=== PATIENT | male | born 1985 | race Caucasian/White ===

== ENCOUNTER 2022-09-14 18:19 | Inpatient (IN) | payer OTHER, SELFPAY ==
--- NOTE | ~2022-09-14 | XR_ITS ---
EXAMINATION: XR ELBOW, RIGHT CLINICAL INFORMATION: Swelling, pain. COMPARISON: None available. TECHNIQUE: AP, lateral, and oblique views of the right elbow. FINDINGS: No evidence of fractures or malalignment. No joint effusion. No unexpected radiopaque foreign bodies. Diffuse nonspecific soft tissue thickening. XR/XR elbow RT min 3V IMPRESSION: 1. No acute fractures or malalignment. 2. Diffuse nonspecific soft tissue thickening.
--- NOTE | ~2022-09-14 | CT_ITS ---
EXAMINATION: CT RIGHT ELBOW WITH CONTRAST CLINICAL INFORMATION: Abscess, swelling, pain COMPARISON: Radiograph 09/14/2022 TECHNIQUE: Multidetector volumetric images were obtained through the right elbow following administration 85 mL of Omnipaque 350 intravenous contrast. Sagittal and coronal reformatted images were obtained on the technologist's workstation. This CT examination was performed using dose optimization techniques as appropriate, variously including the following: *Automated exposure control *Adjustment of mA and/or kV according to patient size (this includes techniques or standardized protocols for targeted exams where dose is matched to indication/reason for exam; i.e. extremities or head) *Use of iterative reconstruction technique DLP: 99 mGy-cm FINDINGS: Articular alignment across the elbow appears anatomic. No acute fracture is seen. In the dorsal soft tissues overlying the olecranon there is hyperdense material suspicious for packing material along with multiple foci of gas. There is significant associated soft tissue swelling in this region. No definite fluid collection/abscess is seen. No significant elbow effusion. Prominent subcutaneous edema is present extending proximal and distal to this region. CT/CT elbow RT w IV con IMPRESSION: Hyperdense material in the dorsal soft tissues overlying the olecranon suspicious for packing material along with multiple foci of gas. Significant associated soft tissue swelling in this region. No definite fluid collection/abscess identified.
--- NOTE | 2022-09-14 18:45 | ED_ITS ---
HPI - Extremity Injury (Upper) General Chief Complaint: Extremity Injury, Upper <CHRISTINE Bull - Last Filed: 09/14/22 18:52> Stated Complaint: Elbow swelling <CHRISTINE Bull - Last Filed: 09/14/22 18:52> Time Seen by Provider: 09/14/22 23:11 <CHRISTINE Bull - Last Filed: 09/14/22 18:52> Source: patient, RN notes reviewed and old records reviewed <Matheus Smith - Last Filed: 09/15/22 00:56> Mode of arrival: ambulatory <Matheus Smith - Last Filed: 09/15/22 00:56> Limitations: no limitations <Matheus Smith - Last Filed: 09/15/22 00:56> History of Present Illness HPI narrative: 37-year-old male who denies any past medical history presents for evaluation of fevers and right elbow pain. Patient reports that he bumped his elbow a few times the last few weeks He remembers 2 weeks ago while in the [place] he bumped his right e lbow against a water slide and noticed that he had a small cut to the area He has noticed increased stiffness and soreness ever since Over the last 4 days or so he has had significant increase in redness, swelling, pain and subjective fevers over the last 2 days He went to urgent care 2 days ago and was prescribed Bactrim for a skin infection He has taken 4 doses and reports no improvement in his symptoms <Matheus Smith - Last Filed: 09/15/22 00:56> Related Data Allergies/Adverse Reactions: Allergies Allergy/AdvReac Type Severity Reaction Status Date / Time No Known Allergies Allergy Verified 09/14/22 18:46 <CHRISTINE Bull - Last Filed: 09/14/22 18:52> Review of Systems Constitutional: Constitutional: Reports body ache(s), Reports chills and Reports fever(s) <Matheus Smith - Last Filed: 09/15/22 00:56> Cardiovascular: Cardiovascular: Denies chest pain and Denies dyspnea <Matheus Smith - Last Filed: 09/15/22 00:56> Respiratory: Respiratory: Denies dyspnea <Matheus Smith - Last Filed: 09/15/22 00:56> Gastrointestinal: Gastrointestinal: Denies abdominal pain, Denies diarrhea, Denies nausea and Denies vomiting <Matheus Smith - Last Filed: 09/15/22 00:56> Musculoskeletal: Musculoskeletal: Reports joint swelling and Reports limited range of motion <Matheus Smith - Last Filed: 09/15/22 00:56> PMFSH Social History Social History: Social History Advance Directives: No Advance Directives Information Provided: No <CHRISTINE Bull - Last Filed: 09/14/22 18:52> Physical Exam Vital Signs: Vital Signs: Last Vital Signs Temp 99.3 F 09/14/22 18:46 Pulse 96 09/14/22 22:55 Resp 16 09/14/22 22:55 BP 127/72 09/14/22 22:55 Pulse Ox 94 09/14/22 22:55 O2 Del Method Room Air 09/14/22 22:55 BMI result Body Mass Index 25.8 <CHRISTINE Bull - Last Filed: 09/14/22 18:52> Vital Signs: Last Vital Signs Temp 99.3 F 09/14/22 18:46 Pulse 96 09/14/22 22:55 Resp 16 09/14/22 22:55 BP 127/72 09/14/22 22:55 Pulse Ox 94 09/14/22 22:55 O2 Del Method Room Air 09/14/22 22:55 BMI result Body Mass Index 25.8 <Matheus Smith - Last Filed: 09/15/22 00:56> Const: General: healthy appearing, comfortable, no acute distress, alert and awake <Matheus Smith - Last Filed: 09/15/22 00:56> Nutritional Appearance: well nourished <Matheus Smith - Last Filed: 09/15/22 00:56> Orientation/consciousness: patient oriented x3 <Matheus Smith - Last Filed: 09/15/22 00:56> HEENT: Head: Yes normocephalic and Yes atraumatic <Matheus Belle F iled: 09/15/22 00:56> Throat: Yes posterior oropharynx normal <Matheus Smith Last Filed: 09/15/22 00:56> Eyes: Eyelids: Yes eyelids normal < Last Filed: 09/15/22 00:56> Conjunctivae: conjunctivae normal < Last Filed: 09/15/22 00:56> Sclerae: sclerae normal < Last Filed: 09/15/22 00:56> Corneas: corneas normal < Last Filed: 09/15/22 00:56> Pupils: Equal, round and reactive pupils present < Last Filed: 09/15/22 00:56> EOM: EOMs intact bilaterally < Last Filed: 09/15/22 00:56> Neck: Neck: Yes full ROM < Filed: 09/15/22 00:56> Resp: Effort & Inspection: normal respiratory effort, able to speak in complete sentences, no audible wheezes and not labored < Last Filed: 09/15/22 00:56> Auscultation: clear to auscultation bilaterally < Last Filed: 09/15/22 00:56> Cardio: Rate: regular rate < Last Filed: 09/15/22 00:56> Rhythm: regular rhythm < Filed: 09/15/22 00:56> GI: Inspection: No distended < Last Filed: 09/15/22 00:56> Palpation (GI): Soft to palpation, not firm, nontender, no guarding and not rigid < Last Filed: 09/15/22 00:56> Auscultation: normoactive bowel sounds < Last Filed: 09/15/22 00:56> Skin: General skin exam: erythema and fluctuance < Last Filed: 09/15/22 00:56> Neuro: General: patient oriented x3 < Last Filed: 09/15/22 00:56> Cranial nerves: Yes CN's II-XII intact bilaterally, Yes Equal, round and reactive pupils present and Yes Bilaterally intact EOM present <Matheus Sarah - Last Filed: 09/15/22 00:56> Cognition (Neuro): normal cognition <Matheus StarrMarinette - Last Filed: 09/15/22 00:56> Extrem: Other: Patient has significant edema with erythema to the right elbow extending distally towards the hand. He has a large area of fluctuance in the soft tissue of the right elbow. Patient has reduced range of motion with extension and can extend the elbow to approximately 110?. He has full range of motion of the right wrist and all fingers of the right hand. <Matheus Delfinay - Last Filed: 09/15/22 00:56> Right upper extremity: abnormal to inspection and ROM limited <Matheus Smith - Last Filed: 09/15/22 00:56> Course Course Course Narrative: RME - 37 y/o male presents to the ER for evaluation of right elbow swelli ng, pain and redness, worsening for the last 2 weeks after bumping it on a water slide in the [place]. He also banged it again when he was wrestling with his son. He went to Urgent Care on Tuesday and was started on Bactrim and told to use an RADHA wrap. He reports worsening redness, pain and swelling to the elbow and lower arm since. Reports night sweats at home. In triage patient's right elbow is significant swollen, erythematous, warm and tender with limited ROM. VS are stable. Plan: XR elbow, lab workup. <CHRISTINE Bull - Last Filed: 09/14/22 18:52> Medications Administered Discontinued Medications Generic Name Dose Route Start Last Admin Trade Name Freq PRN Reason Stop Dose Admin Ibuprofen 600 mg 09/14/22 20:52 09/14/22 20:58 Ibuprofen 600 Mg Tablet PO 09/14/22 20:53 600 mg ONCE ONE Administration Lidocaine/Epinephrine 10 ml 09/14/22 23:27 09/14/22 23:57 Lidocaine Hcl 2% Pf/Epi 1:200 10 Ml Vial INFILTRATI 09/14/22 23:28 10 ml ONCE ONE Administration <CHRISTINE Bull - Last Filed: 09/14/22 18:52> Medications Administered Discontinued Medications Generic Name Dose Route Start Last Admin Trade Name Neha PRN Reason Stop Dose Admin Ibuprofen 600 mg 09/14/22 20:52 09/14/22 20:58 Ibuprofen 600 Mg Tablet PO 09/14/22 20:53 600 mg ONCE ONE Administration Lidocaine/Epinephrine 10 ml 09/14/22 23:27 09/14/22 23:57 Lidocaine Hcl 2% Pf/Epi 1:200 10 Ml Vial INFILTRATI 09/14/22 23:28 10 ml ONCE ONE Administration <Matheus Smith - Last Filed: 09/15/22 00:56> Medical Decision Making Medical Decision Making [facility] Narrative: Patient has a large abscess that was drained, see procedure note. He has a white count [id number] with elevated inflammatory markers. He has failed outpatient oral antibiotics. He will require admission for IV antibiotics. I ordered vancomycin and ceftriaxone. Prior to antibiotic administration the patient did have a wound culture sent down to the lab. His vital signs are within normal limits, no evidence of sepsis <Matheus Smith - Last Filed: 09/15/22 00:56> Differential Diagnosis Differential Diagnoses: The differential diagnosis associated with the presentation includes <Matheus Smith - Last Filed: 09/15/22 00:56> Cellulitis Abscess Septic joint Sepsis <Matheus Smith - Last Filed: 09/15/22 00:56> Consult Healthcare Provider Management of the patient was discussed with: Building [employer] Teacher (Orthopedist, Barbara Blackwell. Recommends admission for IV antibiotics and likely or management. The patient should be NPO until seen by the orthopedic team later today) <Matheus Smith - Last Filed: 09/15/22 00:56> Lab Data [facility] Lab Attestation statement: I reviewed the patient's lab results. <Matheus Smith - Last Filed: 09/15/22 00:56> Result Diagrams: 09/14/22 19:05 09/14/22 19:05 <CHRISTINE Bull - Last Filed: 09/14/22 18:52> Labs: Lab Results 09/14/22 09/14/22 09/14/22 Range/Units 19:05 19:05 19:05 WBC 17.4 H (4.8-10.8) X10*3/uL RBC 5.10 (4.60-5.80) X10*6/uL Hgb 15.2 (14.0-18.0) g/dl Hct 42.9 (42.0-52.0) % MCV 84.1 (80.0-98.0) fL MCH 29.8 (27.0-33.0) pg MCHC 35.4 (31.0-36.0) g/dl RDW 11.4 (11.0-16.0) % Plt Count 285 (160-400) X10*3/uL MPV 8.3 L (9.4-12.4) fL Immature Gran % (Auto) 0.3 (0.0-0.4) % Neut % (Auto) 74.8 H (45-73) % Lymph % (Auto) 14.2 L (20-40) % Amelia % (Auto) 10.0 (2-11) % Eos % (Auto) 0.5 (0-4) % Baso % (Auto) 0.2 (0-2) % Lymph # (Auto) 2.5 (1.2-4.9) X10*3/uL [place] # (Auto) 1.8 H (0.1-1.2) X10*3/uL Eos # (Auto) 0.1 (0.0-0.4) X10*3/uL Baso # (Auto) 0.0 (0.0-0.2) X10*3/uL Abs Immat Gran (auto) 0.06 H (0.00-0.03) X10*3/uL Absolute Neuts (auto) 13.0 H (2.0-8.3) x10*3/uL Absolute Nucleated RBC 0.000 (0.0-0.012) X10*3/uL Nucleated RBC % (auto) 0.0 (0.0-0.2) /100WBC Smear Tech's Comments VERIFIED ESR 57 H (0-15) MM/HR Sodium 135 (135-145) mmol/L Potassium 3.8 (3.3-5.1) mmol/L Chloride 103 (96-108) mmol/L Carbon Dioxide 21 L (22-29) mmol/L Anion Gap 15 (12-20) BUN 14 (9-16) mg/dL Creatinine 0.92 (0.5-1.4) mg/dL Estim Creat Clear Calc 109.9 Estimated GFR > 60 Random Glucose 168 H (60-115) mg/dL Lactic Acid (0.5-2.0) mmol/L Calcium 9.3 (8.4-10.2) mg/dL Magnesium 2.1 (1.6-2.6) mg/dL Total Bilirubin 1.1 H (0.0-1.0) mg/dL Direct Bilirubin 0.4 (0.0-0.5) mg/dL AST 26 (5-37) U/L ALT 35 (0-40) U/L Alkaline Phosphatase 100 (39-117) U/L C-Reactive Protein 16.49 H (< or = 0.50) mg/dL Total Protein 7.8 (6.5-8.0) g/dL Albumin 4.4 (3.5-5.0) g/dL 09/14/22 Range/Units 19:05 WBC (4.8-10.8) X10*3/uL RBC (4.60-5.80) X10*6/uL Hgb (14.0-18.0) g/dl Hct (42.0-52.0) % MCV (80.0-98.0) fL MCH (27.0-33.0) pg MCHC (31.0-36.0) g/dl RDW (11.0-16.0) % Plt Count (160-400) X10*3/uL MPV (9.4-12.4) fL Immature Gran % (Auto) (0.0-0.4) % Neut % (Auto) (45-73) % Lymph % (Auto) (20-40) % [place] % (Auto) (2-11) % Eos % (Auto) (0-4) % Baso % (Auto) (0-2) % Lymph # (Auto) (1.2-4.9) X10*3/uL [place] # (Auto) (0.1-1.2) X10*3/uL Eos # (Auto) (0.0-0.4) X10*3/uL Baso # (Auto) (0.0-0.2) X10*3/uL Abs Immat Gran (auto) (0.00-0.03) X10*3/uL Absolute Neuts (auto) (2.0-8.3) x10*3/uL Absolute Nucleated RBC (0.0-0.012) X10*3/uL Nucleated RBC % (auto) (0.0-0.2) /100WBC Smear Tech's Comments ESR (0-15) MM/HR Sodium (135-145) mmol/L Potassium (3.3-5.1) mmol/L Chloride (96-108) mmol/L Carbon Dioxide (22-29) mmol/L Anion Gap (12-20) BUN (9-16) mg/dL Creatinine (0.5-1.4) mg/dL Estim Creat Clear Calc Estimated GFR Random Glucose (60-115) mg/dL Lactic Acid 0.9 (0.5-2.0) mmol/L Calcium (8.4-10.2) mg/dL Magnesium (1.6-2.6) mg/dL Total Bilirubin (0.0-1.0) mg/dL Direct Bilirubin (0.0-0.5) mg/dL AST (5-37) U/L ALT (0-40) U/L Alkaline Phosphatase (39-117) U/L C-Reactive Protein (< or = 0.50) mg/dL Total Protein (6.5-8.0) g/dL Albumin (3.5-5.0) g/dL <CHRISTINE Bull - Last Filed: 09/14/22 18:52> Lab Results 09/14/22 09/14/22 09/14/22 Range/Units 19:05 19:05 19:05 WBC 17.4 H (4.8-10.8) X10*3/uL RBC 5.10 (4.60-5.80) X10*6/uL Hgb 15.2 (14.0-18.0) g/dl Hct 42.9 (42.0-52.0) % MCV 84.1 (80.0-98.0) fL MCH 29.8 (27.0-33.0) pg MCHC 35.4 (31.0-36.0) g/dl RDW 11.4 (11.0-16.0) % Plt Count 285 (160-400) X10*3/uL MPV 8.3 L (9.4-12.4) fL Immature Gran % (Auto) 0.3 (0.0-0.4) % Neut % (Auto) 74.8 H (45-73) % Lymph % (Auto) 14.2 L (20-40) % Amelia % (Auto) 10.0 (2-11) % Eos % (Auto) 0.5 (0-4) % Baso % (Auto) 0.2 (0-2) % Lymph # (Auto) 2.5 (1.2-4.9) X10*3/uL [place] # (Auto) 1.8 H (0.1-1.2) X10*3/uL Eos # (Auto) 0.1 (0.0-0.4) X10*3/uL Baso # (Auto) 0.0 (0.0-0.2) X10*3/uL Abs Immat Gran (auto) 0.06 H (0.00-0.03) X10*3/uL Absolute Neuts (auto) 13.0 H (2.0-8.3) x10*3/uL Absolute Nucleated RBC 0.000 (0.0-0.012) X10*3/uL Nucleated RBC % (auto) 0.0 (0.0-0.2) /100WBC Smear Tech's Comments VERIFIED ESR 57 H (0-15) MM/HR Sodium 135 (135-145) mmol/L Potassium 3.8 (3.3-5.1) mmol/L Chloride 103 (96-108) mmol/L Carbon Dioxide 21 L (22-29) mmol/L Anion Gap 15 (12-20) BUN 14 (9-16) mg/dL Creatinine 0.92 (0.5-1.4) mg/dL Estim Creat Clear Calc 109.9 Estimated GFR > 60 Random Glucose 168 H (60-115) mg/dL Lactic Acid (0.5-2.0) mmol/L Calcium 9.3 (8.4-10.2) mg/dL Magnesium 2.1 (1.6-2.6) mg/dL Total Bilirubin 1.1 H (0.0-1.0) mg/dL Direct Bilirubin 0.4 (0.0-0.5) mg/dL AST 26 (5-37) U/L ALT 35 (0-40) U/L Alkaline Phosphatase 100 (39-117) U/L C-Reactive Protein 16.49 H (< or = 0.50) mg/dL Total Protein 7.8 (6.5-8.0) g/dL Albumin 4.4 (3.5-5.0) g/dL 09/14/22 Range/Units 19:05 WBC (4.8-10.8) X10*3/uL RBC (4.60-5.80) X10*6/uL Hgb (14.0-18.0) g/dl Hct (42.0-52.0) % MCV (80.0-98.0) fL MCH (27.0-33.0) pg MCHC (31.0-36.0) g/dl RDW (11.0-16.0) % Plt Count (160-400) X10*3/uL MPV (9.4-12.4) fL Immature Gran % (Auto) (0.0-0.4) % Neut % (Auto) (45-73) % Lymph % (Auto) (20-40) % [place] % (Auto) (2-11) % Eos % (Auto) (0-4) % Baso % (Auto) (0-2) % Lymph # (Auto) (1.2-4.9) X10*3/uL [place] # (Auto) (0.1-1.2) X10*3/uL Eos # (Auto) (0.0-0.4) X10*3/uL Baso # (Auto) (0.0-0.2) X10*3/uL Abs Immat Gran (auto) (0.00-0.03) X10*3/uL Absolute Neuts (auto) (2.0-8.3) x10*3/uL Absolute Nucleated RBC (0.0-0.012) X10*3/uL Nucleated RBC % (auto) (0.0-0.2) /100WBC Smear Tech's Comments ESR (0-15) MM/HR Sodium (135-145) mmol/L Potassium (3.3-5.1) mmol/L Chloride (96-108) mmol/L Carbon Dioxide (22-29) mmol/L Anion Gap (12-20) BUN (9-16) mg/dL Creatinine (0.5-1.4) mg/dL Estim Creat Clear Calc Estimated GFR Random Glucose (60-115) mg/dL Lactic Acid 0.9 (0.5-2.0) mmol/L Calcium (8.4-10.2) mg/dL Magnesium (1.6-2.6) mg/dL Total Bilirubin (0.0-1.0) mg/dL Direct Bilirubin (0.0-0.5) mg/dL AST (5-37) U/L ALT (0-40) U/L Alkaline Phosphatase (39-117) U/L C-Reactive Protein (< or = 0.50) mg/dL Total Protein (6.5-8.0) g/dL Albumin (3.5-5.0) g/dL <Matheus KeysMarinette - Last Filed: 09/15/22 00:56> Procedures Abscess I/D Site: upper extremity (Right elbow soft tissue) <Matheus O Last Filed: 09/15/22 00:56> Side (if applicable): right <Matheus Massimo Last Filed: 09/15/22 00:56> Sedation/analgesia: none <Matheus OJose D - Last Filed: 09/15/22 00:56> Local Anesthetic: lidocaine 2% and with epi <Matheus O Last Filed: 09/15/22 00:56> Amount of anesthesia used (mL): 3 <Matheus O Last Filed: 09/15/22 00:56> Technique: incised with blade <Matheus O Last Filed: 09/15/22 00:56> Amount of fluid expressed (mL): 10 <Matheus OMarinette - Last Filed: 09/15/22 00:56> Sent for culture/gram staining?: Yes <Matheus Smith Last Filed: 09/15/22 00:56> Irrigation: Yes <Matheus Smith Last Filed: 09/15/22 00:56> Packing used?: iodoform <Matheus Smith - Last Filed: 09/15/22 00:56> Discharge Plan Discharge Clinical Impression: Cellulitis and abscess of upper extremity <CHRISTINE Bull - Last Filed: 09/14/22 18:52> Patient Disposition: Admitted As Inpatient <CHRISTINE Bull - Last Filed: 09/14/22 18:52>
[2022-09-14 18:46] VITALS: BP 143/87; PULSE 92; RESP 18; TEMP 37.4; O2SAT 96; BMI 25.8
[2022-09-14 19:13] LABS: Basophils Percent Auto 0.2 % (0-2); Eosinophils Absolute Auto 0.1 X10*3/uL (0.0-0.4); Eosinophils Percent Auto 0.5 % (0-4); Hematocrit 42.9 % (42.0-52.0); Hemoglobin 15.2 g/dl (14.0-18.0); Imm Gran Abs Auto 0.06 X10*3/uL (0.00-0.03); Imm Gran Pct Auto 0.3 % (0.0-0.4); Lymphocytes Absolute Auto 2.5 X10*3/uL (1.2-4.9); Lymphocytes Percent Auto 14.2 % (20-40); MANUAL DIFF FLAG SCAN; Mean Corpuscular HGB Conc 35.4 g/dl (31.0-36.0); Mean Corpuscular Hemoglobin 29.8 pg (27.0-33.0); Mean Corpuscular Volume 84.1 fL (80.0-98.0); Mean Platelet Volume 8.3 fL (9.4-12.4); Monocytes Absolute Auto 1.8 X10*3/uL (0.1-1.2); Neutrophils Percent Auto 74.8 % (45-73); Platelet Count 285 X10*3/uL (160-400); Red Cell Distribution Width 11.4 % (11.0-16.0); SCAN SMEAR FLAG 1; White Blood Count 17.4 X10*3/uL (4.8-10.8)
[2022-09-14 19:21] LABS: Lactic Acid 0.9 mmol/L (0.5-2.0)
[2022-09-14 19:27] LABS: Alanine Aminotransferase 35 U/L (0-40); Albumin Level 4.4 g/dL (3.5-5.0); Alkaline Phosphatase 100 U/L (39-117); Anion Gap 15 (12-20); Aspartate Amino Transferase 26 U/L (5-37); Bilirubin Direct 0.4 mg/dL (0.0-0.5); Bilirubin Total 1.1 mg/dL (0.0-1.0); Blood Urea Nitrogen 14 mg/dL (9-16); C Reactive Protein 16.49 mg/dL (< or = 0.50); Calcium 9.3 mg/dL (8.4-10.2); Carbon Dioxide 21 mmol/L (22-29); Chloride 103 mmol/L (96-108); Creatinine Clr Calc Pharmacy 109.9; Estimated Glomerular Filt Rate > 60; Glucose Random 168 mg/dL (60-115); Magnesium 2.1 mg/dL (1.6-2.6); Potassium 3.8 mmol/L (3.3-5.1); Sodium 135 mmol/L (135-145); Total Protein 7.8 g/dL (6.5-8.0)
[2022-09-14 20:18] LABS: Erythrocyte Sedimentation Rate 57 MM/HR (0-15)
[2022-09-14] MEDS: Ibuprofen 600 MG TABLET PO (20:58)
[2022-09-14 20:59] LABS: SLIDE REVIEW VERIFIED
--- NOTE | 2022-09-14 22:49 | PC.NURSE ---
pt resting quietly awaiting ED provider, labs completed, XR taken, right elbow/forearm swelling and warmth appreciated, CMS in tact, call within reach WCTM
[2022-09-14 22:55] VITALS: BP 127/72; PULSE 96; RESP 16; O2SAT 94
[2022-09-15] VITALS (8 sets, daily range): BP systolic 129–168; BP diastolic 67–88; PULSE 88–100; RESP 18–20; TEMP 36.3–39.1; O2SAT 94–100
[2022-09-15] MEDS: cefTRIAXone sodium 1 GM in 0.9 % Sodium Chloride 50 ML IV ×2 (01:49→23:28)
[2022-09-15] MEDS: 0.9 % Sodium Chloride 1,000 ML 999 ML IV (01:51)
[2022-09-15 01:52] LABS: Prothrombin Time 11.9 SEC (10.0-13.1)
[2022-09-15 01:55] LABS: Partial Thromboplastin Time 27.5 SEC (26.0-36.4)
[2022-09-15 02:01] LABS: COVID-19 Test Negative (Negative); IDNOW Serial# 08D9AD1C
[2022-09-15] MEDS: vancomycin/NS 2,000 MG/500 ML PLAST..BAG 250 MG IV (03:11)
[2022-09-15] MEDS: Acetaminophen 325 MG TABLET 650 MG PO ×3 (03:16→16:38)
--- NOTE | 2022-09-15 05:09 | PM.IMHP ---
History of Present Illness Date of Service: 09/15/22 Chief Complaint: right elbow swelling 37-year-old male with past medical history of psoriasis who presents to the hospital with complaints of difficulty ambulating his right elbow, swelling, and redness in the same region. Patient reports that about 4 weeks ago he fell on his elbow while playing with her son, he then injured the same elbow banging it in various places x2 last episode 2 weeks ago, he started having trouble with movement of his elbow, and few days ago started developing swelling, redness, and worsening pain characterized as intermittent, 3 to 5/10, elbow to the tip of his fingers, relieved with ibuprofen. Movement makes the pain worse. Patient reports chills with no fever. He was seen at urgent care on Tuesday, prescribed Bactrim which has not helped, he was seen by his PCP today who sent him to the ED. Patient otherwise denies any chest pain, shortness of breath, no abdominal pain nausea or vomiting, no diarrhea constipation, no urinary symptoms and no lower extremity edema. No numbness weakness or tingling, no headache or change in vision On arrival to the ED patient hemodynamically stable no significant abnormal vitals Labs are significant for WBC count of 17.4, ESR 57, CRP of 16, Elbow x-ray shows nonspecific soft tissue thickening, with no acute fracture or malalignment an I&D was performed in the ED and fluid was removed from a small abscess and sent for cultures orthopedic team was consulted by ED, patient started on IV antibiotics and will be admitted for further management and evaluation Review of Systems Review of Systems: Yes all other systems are reviewed and are negative [facility] Medical History (Updated 09/15/22 @ 05:13 by Sadnra Levine MD) Psoriasis Surgical History (Updated 09/15/22 @ 05:13 by Sandra Levine MD) No pertinent past surgical history Social History (Updated 09/15/22 @ 05:13 by Sandra Levine MD) Alcohol intake: current Patient Tobacco Use Status: Never used Tobacco Meds Allergies Allergy/AdvReac Type Severity Reaction Status Date / Time No Known Allergies Allergy Verified 09/14/22 18:46 Active Medications: Current Medications Acetaminophen (Acetaminophen 325 Mg Tablet) 650 mg PO Q6H PRN PRN Reason: Pain, Mild (Pain Scale 1-3) Last Admin: 09/15/22 03:16 Dose: 650 mg Docusate Sodium (Docusate Sodium 100 Mg Capsule) 100 mg PO DAILY PRN PRN Reason: Constipation Ceftriaxone Sodium 1 gm/ (Sodium Chloride) 50 mls @ 100 mls/hr IV Q24H OZZY Ondansetron HCl (Ondansetron Hcl 4 Mg/2 Ml Vial) 4 mg IVPUSH Q8H PRN PRN Reason: Nausea and Vomiting Pharmacy Consult (Consult Rx Perform Med Rec) 1 each MISCELLANE ONCE PRN PRN Reason: Consult order Pharmacy Consult (Consult Rx Vancomycin Dosing) 1 each MISCELLANE DAILY PRN PRN Reason: Consult order Sodium Chloride (0.9 % Sodium Chloride Flush 3 Ml Syringe) 3 ml IVFLUSH QSHIFT OZZY Physical Exam Vital Signs and Narrative: Vital Signs: Last Vital Signs Temp 99.3 F 09/14/22 18:46 Pulse 96 09/14/22 22:55 Resp 16 09/14/22 22:55 BP 127/72 09/14/22 22:55 Pulse Ox 94 09/14/22 22:55 O2 Del Method Room Air 09/14/22 22:55 BMI result Body Mass Index 25.8 Const: General: cooperative and no acute distress Orientation/consciousness: patient oriented x3 Eyes: General: appearance normal, both eyes and all related structures Pupils: Equal, round and reactive pupils present Resp: Effort & Inspection: normal respiratory effort Auscultation: clear to auscultation bilaterally Cardio: Rate: regular rate Rhythm: regular rhythm GI: Palpation (GI): Soft to palpation Auscultation: normal bowel sounds Skin: Other: has erythema, warmth, tenderness at right elbow, swelling extending to tip of fingers, Neuro: General: patient oriented x3 Cranial nerves: Yes Equal, round and reactive pupils present Cognition (Neuro): normal cognition Extrem: Other: limited range of motion of his elbow as well as his fingers due to pain, no evidence of compartment rigidity, no paresthesia General: Yes no pedal edema Results Labs 09/14/22 19:05 09/14/22 19:05 Labs: Laboratory Results - last 24 hr 09/14/22 09/14/22 09/14/22 19:05 19:05 19:05 MCV 84.1 MCH 29.8 MCHC 35.4 RDW 11.4 Plt Count 285 MPV 8.3 L Immature Gran % (Auto) 0.3 Neut % (Auto) 74.8 H Lymph % (Auto) 14.2 L [place] % (Auto) 10.0 Eos % (Auto) 0.5 Baso % (Auto) 0.2 Lymph # (Auto) 2.5 [place] # (Auto) 1.8 H Eos # (Auto) 0.1 Baso # (Auto) 0.0 Abs Immat Gran (auto) 0.06 H Absolute Neuts (auto) 13.0 H Absolute Nucleated RBC 0.000 Nucleated RBC % (auto) 0.0 Smear Tech's Comments VERIFIED ESR 57 H PT INR APTT Anion Gap 15 Estim Creat Clear Calc 109.9 Estimated GFR > 60 Random Glucose 168 H Lactic Acid Calcium 9.3 Magnesium 2.1 Total Bilirubin 1.1 H Direct Bilirubin 0.4 AST 26 ALT 35 Alkaline Phosphatase 100 C-Reactive Protein 16.49 H Total Protein 7.8 Albumin 4.4 COVID-19 (REINIER) COVID-Shipping Easy 09/14/22 09/15/22 09/15/22 19:05 01:41 01:41 MCV MCH MCHC RDW Plt Count MPV Immature Gran % (Auto) Neut % (Auto) Lymph % (Auto) [place] % (Auto) Eos % (Auto) Baso % (Auto) Lymph # (Auto) [place] # (Auto) Eos # (Auto) Baso # (Auto) Abs Immat Gran (auto) Absolute Neuts (auto) Absolute Nucleated RBC Nucleated RBC % (auto) Smear Tech's Comments ESR PT 11.9 INR 1.0 APTT 27.5 Anion Gap Estim Creat Clear Calc Estimated GFR Random Glucose Lactic Acid 0.9 Calcium Magnesium Total Bilirubin Direct Bilirubin AST ALT Alkaline Phosphatase C-Reactive Protein Total Protein Albumin COVID-19 (REINIER) Negative COVID-19 Clin Com See Note Imaging Radiologist's Impressions: Impressions Elbow X-Ray 09/14/22 18:45 IMPRESSION: 1. No acute fractures or malalignment. 2. Diffuse nonspecific soft tissue thickening. Assessment and Plan (1) Cellulitis and abscess of upper extremity: Status: Acute Plan 37-year-old male with past medical history of psoriasis presents to the hospital with complaints of elbow pain, swelling found to have cellulitis and small abscess # cellulitis and abscess of right upper extremity - localized around the elbow - small incision was made in the ED, small abscess was drained, cultures pending - will obtain elbow CT - continue IV antibiotics to cover g negatives as well as MRSA given his history of MRSA infection in the past - follow cultures - ortho consulted DVT prophylaxis: Early ambulation Time Spent With Patient Time: Total time managing care of this patient today ____ minutes. Quality Stroke Does the patient have a stroke diagnosis?: No VTE Prior VTE?: No VTE Risk Level:: Medical - low VTE Device Contraindication: Treatment Not Indicated VTE Drug Contraindication: Treatment Not Indicated
[2022-09-15] MEDS: iohexoL 350 MG/ML 100 ML INFUS..BTL 85 ML IV (05:58)
[2022-09-15 06:35] LABS: Basophils Percent Auto 0.2 % (0-2); Eosinophils Percent Auto 0.3 % (0-4); Hematocrit 39.1 % (42.0-52.0); Hemoglobin 13.6 g/dl (14.0-18.0); Imm Gran Abs Auto 0.09 X10*3/uL (0.00-0.03); Imm Gran Pct Auto 0.6 % (0.0-0.4); Lymphocytes Absolute Auto 1.2 X10*3/uL (1.2-4.9); Lymphocytes Percent Auto 8.1 % (20-40); MANUAL DIFF FLAG SCAN; Mean Corpuscular HGB Conc 34.8 g/dl (31.0-36.0); Mean Corpuscular Hemoglobin 29.6 pg (27.0-33.0); Mean Corpuscular Volume 85.2 fL (80.0-98.0); Mean Platelet Volume 8.2 fL (9.4-12.4); Monocytes Absolute Auto 1.7 X10*3/uL (0.1-1.2); Neutrophils Absolute Auto 12.2 x10*3/uL (2.0-8.3); Neutrophils Percent Auto 79.8 % (45-73); Platelet Count 241 X10*3/uL (160-400); Red Blood Count 4.59 X10*6/uL (4.60-5.80); Red Cell Distribution Width 11.5 % (11.0-16.0); SCAN SMEAR FLAG 1; White Blood Count 15.2 X10*3/uL (4.8-10.8)
[2022-09-15 06:52] LABS: Anion Gap 10 (12-20); Blood Urea Nitrogen 10 mg/dL (9-16); Calcium 8.3 mg/dL (8.4-10.2); Carbon Dioxide 22 mmol/L (22-29); Chloride 106 mmol/L (96-108); Creatinine Clr Calc Pharmacy 123.3; Estimated Glomerular Filt Rate > 60; Glucose Random 102 mg/dL (60-115); Potassium 4.3 mmol/L (3.3-5.1); Sodium 134 mmol/L (135-145)
--- NOTE | 2022-09-15 07:07 | PC.NURSE ---
Addendum entered by Rhoda Sky RN 09/15/22 07:09: correction, pt rating pain 7/10 to elbow Original Note: Resumed care of this patient this morning, sitting comfortably in bed this morning, rates his pain currently 1/10, all needs met at this time
--- NOTE | 2022-09-15 07:32 | PM.CNOR ---
History of Present Illness HPI Consult date: 09/15/22 Chief complaint: Cellulitis, Abscess Narrative: Mr. Guillen is a 37-year-old healthy male with no past medical history who presented to the ED yesterday evening for evaluation of fevers and right elbow pain. He reports that 2 weeks ago while on vacaition in the [facility] he bumped his right elbow against a water slide and noticed that he had a small cut to the area. He has noticed increased stiffness and soreness ever since. However, the last 4 days he has had a significant increase in redness, swelling, pain and subjective fevers x 2 days. He presented to urgent care 2 days ago and was prescribed Bactrim for a skin infection. He reports taking four doses of Bactrim with no improvement and continued worsening symptoms. While in the ED the right elbow olecranon bursa was incised and allowed to drain. Cultures obtained and the incision site was packed. He was admitted to the medicine service with orthopedic consult for further evaluation and treatment. Review of Systems Review of Systems: Yes all other systems are reviewed and are negative PMFSH Past Medical History Medical History (Updated 09/15/22 @ 08:13 by Barbara Munoz PA-C) Psoriasis Surgical History Surgical History (Updated 09/15/22 @ 05:13 by Sandra Levine MD) No pertinent past surgical history Social History Social History (Updated 09/15/22 @ 05:13 by Sandra Levine MD) Alcohol intake: current Patient Tobacco Use Status: Never used Tobacco Use of substances other than those prescribed or required for medical reasons: No Advance Directives: No Advance Directives Information Provided: No service: No Current occupational status: unemployed Meds Allergies Allergy/AdvReac Type Severity Reaction Status Date / Time No Known Allergies Allergy Verified 09/14/22 18:46 Active Medications: Current Medications Acetaminophen (Acetaminophen 325 Mg Tablet) 650 mg PO Q6H PRN PRN Reason: Pain, Mild (Pain Scale 1-3) Last Admin: 09/15/22 03:16 Dose: 650 mg Docusate Sodium (Docusate Sodium 100 Mg Capsule) 100 mg PO DAILY PRN PRN Reason: Constipation Ceftriaxone Sodium 1 gm/ (Sodium Chloride) 50 mls @ 100 mls/hr IV Q24H [facility] Ondansetron HCl (Ondansetron Hcl 4 Mg/2 Ml Vial) 4 mg IVPUSH Q8H PRN PRN Reason: Nausea and Vomiting Pharmacy Consult (Consult Rx Perform Med Rec) 1 each MISCELLANE ONCE PRN PRN Reason: Consult order Pharmacy Consult (Consult Rx Vancomycin Dosing) 1 each MISCELLANE DAILY PRN PRN Reason: Consult order Sodium Chloride (0.9 % Sodium Chloride Flush 3 Ml Syringe) 3 ml IVFLUSH QSHIFT [facility] Home Medications Medication Instructions Recorded Confirmed Last Taken Type ibuprofen 800 mg tablet 800 mg PO TID PRN Pain 09/15/22 09/15/22 Unknown History sulfamethoxazole 800 1 tab PO BID 09/15/22 09/15/22 Unknown History mg-trimethoprim 160 mg tablet (Bactrim DS) Physical Exam Vital Signs: Vital Signs: Last Vital Signs Temp 99.3 F 09/14/22 18:46 Pulse 96 09/14/22 22:55 Resp 16 09/14/22 22:55 BP 127/72 09/14/22 22:55 Pulse Ox 94 09/14/22 22:55 O2 Del Method Room Air 09/14/22 22:55 BMI result Body Mass Index 25.8 Const: General: cooperative and no acute distress Orientation/consciousness: patient oriented x3 Resp: Effort & Inspection: normal respiratory effort and able to speak in complete sentences Cardio: Peripheral pulses: Peripheral pulses 2+ throughout Skin: General skin exam: no rashes or lesions noted Neuro: General: patient oriented x3 Extrem: Other: Right elbow signifcant erythema over the olecranon bursa. Incision site is packed with no active drainage. Able to flex and extend but has significant stiffness. Sensation is intact. Able to move hand and wrist. NVI. Results Labs 09/14/22 19:05 09/15/22 06:00 Labs: Abnormal lab results 09/14/22 09/14/22 09/14/22 Range/Units 19:05 19:05 19:05 WBC 17.4 H (4.8-10.8) X10*3/uL MPV 8.3 L (9.4-12.4) fL Neut % (Auto) 74.8 H (45-73) % Lymph % (Auto) 14.2 L (20-40) % [place] # (Auto) 1.8 H (0.1-1.2) X10*3/uL Abs Immat Gran (auto) 0.06 H (0.00-0.03) X10*3/uL Absolute Neuts (auto) 13.0 H (2.0-8.3) x10*3/uL ESR 57 H (0-15) MM/HR Sodium (135-145) mmol/L Carbon Dioxide 21 L (22-29) mmol/L Anion Gap (12-20) Random Glucose 168 H (60-115) mg/dL Calcium (8.4-10.2) mg/dL Total Bilirubin 1.1 H (0.0-1.0) mg/dL C-Reactive Protein 16.49 H (< or = 0.50) mg/dL 09/15/22 Range/Units 06:00 WBC (4.8-10.8) X10*3/uL MPV (9.4-12.4) fL Neut % (Auto) (45-73) % Lymph % (Auto) (20-40) % [place] # (Auto) (0.1-1.2) X10*3/uL Abs Immat Gran (auto) (0.00-0.03) X10*3/uL Absolute Neuts (auto) (2.0-8.3) x10*3/uL ESR (0-15) MM/HR Sodium 134 L (135-145) mmol/L Carbon Dioxide (22-29) mmol/L Anion Gap 10 L (12-20) Random Glucose (60-115) mg/dL Calcium 8.3 L D (8.4-10.2) mg/dL Total Bilirubin (0.0-1.0) mg/dL C-Reactive Protein (< or = 0.50) mg/dL H & H 09/14/22 Range/Units 19:05 Hgb 15.2 (14.0-18.0) g/dl Hct 42.9 (42.0-52.0) % Coagulation 09/15/22 Range/Units 01:41 INR 1.0 (0.9-1.1) All other labs normal. Assessment and Plan (1) Cellulitis and abscess of upper extremity: Status: Acute (2) Septic olecranon bursitis of right elbow: Status: Acute - May remove packing this afternoon -Keep bandages c/d/i. - Anticipate continued drainage -IV abx and adjust based off of cultures -Pain management as needed -Encourage gentle ROM Time Spent With Patient Time: Total time managing care of this patient today ____ minutes. Procedures Date of Service Date of Service: 09/15/22
[2022-09-15 07:52] LABS: SLIDE REVIEW VERIFIED
--- NOTE | 2022-09-15 07:52 | PHA.PROG ---
Admission Date/Time: September 15, 2022 01:02 Indication: CELLULITIS Weight in k.379 kg Adjusted body weight in K.1 [place] body weight in Kg: Obesity Dosing Indication % IBW: Serum Creatinine - Last 168 Hours 09/14/22 09/15/22 19:05 06:00 Creatinine 0.92 0.82 Estimated CrCl and GFR - Last 168 Hours 09/14/22 09/15/22 19:05 06:00 Estim Creat Clear Calc 109.9 123.3 Estimated GFR > 60 > 60 Vancomycin Loading Dose: 2000 MG Current Vancomycin Dosing Regimen: 1250MG Q12H Vancomycin Monitoring using AUC goal of 400 - 600 range with trough as surrogate marker: AUC 495, 14.6 Date and Time for next Vancomycin Level to be drawn: TROUGH 09/16 @ 1300 Pharmacist Comments on Vancomycin Plan: Vancomycin dosing will take advantage of [employer] as a clinical decision support tool that uses Bayesian modeling to calculate individual patient's pharmacokinetic parameters and forecast the patient's drug concentration time course with the target goal AUC 24 range of 400 - 600 mg/L/hr.
--- NOTE | 2022-09-15 09:54 | PM.EVENT ---
Event Note Date of Service: 09/15/22 Event Note: Pt seen and examined, has right elbow abscess from fall with injury 3 weeks agao, high risk for MRSA. Add Vanco to present Ceftriaxne/ O/w A/P per H and P from this morning. Time Spent With Patient Time: Total time managing care of this patient today ____ minutes.
[2022-09-15] MEDS: 0.9 % Sodium Chloride Flush 3 ML SYRINGE IVFLUSH ×3 (10:16→23:27)
--- NOTE | 2022-09-15 10:41 | PHA.MEDREC ---
Pharmacy Consult ? Medication Reconciliation Spoke with patient to confirm medications. Pharmacy has completed the medication reconciliation.
--- NOTE | 2022-09-15 12:06 | PC.NURSE ---
Rectal temp performed d/t patient continuing to feel warm, and starting to get diaphoretic, temp was 102.4f, Provider made aware, also asked about continued vanco dose d/t order not being in place. Right hand still swollen but no increase in redness, pulse remains + and strong. awaiting further orders at this time
--- NOTE | 2022-09-15 13:30 | MHC.CM.PN ---
Met with patient and his , Anastasia, in regards to discharge planning. Patient lives with Anastasia, ambulates independently and had no services prior to coming to the hospital. No services anticipated to be needed because patient is not homebound. PCP verified. Patient denies having a HCP. Information provided. Patient declining to complete one at this time. Patient received 1 J&J vaccine and 1 Moderna booster. Obs notice explained and signed. Anastasia will transport patient home when medically stable. Continue to monitor for d/c needs.
--- NOTE | 2022-09-15 14:59 | PC.NURSE ---
Report given to Tino MIKE, pt tp be transported up to unit.
[2022-09-15] MEDS: vancomycin HCL 1,250 MG in 0.9 % Sodium Chloride 250 ML 166.67 MG IV (16:32)
[2022-09-16] MEDS: Ibuprofen 600 MG TABLET PO ×2 (00:01→09:04)
[2022-09-16 04:00] VITALS: BP 135/70; PULSE 60; RESP 18; TEMP 36.6; O2SAT 96
[2022-09-16] MEDS: vancomycin HCL 1,250 MG in 0.9 % Sodium Chloride 250 ML 166.67 MG IV ×2 (05:13→16:06)
[2022-09-16 06:20] LABS: Creatinine Clr Calc Pharmacy 129.6; Estimated Glomerular Filt Rate > 60
[2022-09-16 07:17] VITALS: BP 129/71; PULSE 86; RESP 16; TEMP 37.3; O2SAT 96
--- NOTE | 2022-09-16 08:21 | PM.PNORT ---
Subjective Subjective Date of Service: 09/16/22 Interval history: Patient resting in bed comfortably no overnight events. Pain is managed. No additional complaints. Physical Exam Vital Signs: Vital Signs: Last Vital Signs Temp 99.2 F 09/16/22 07:17 Pulse 86 09/16/22 07:17 Resp 16 09/16/22 07:17 BP 129/71 09/16/22 07:17 Pulse Ox 96 09/16/22 07:17 O2 Del Method Room Air 09/16/22 07:17 BMI result Body Mass Index 25.8 Const: General: cooperative and no acute distress Orientation/consciousness: patient oriented x3 Resp: Effort & Inspection: normal respiratory effort and able to speak in complete sentences Cardio: Peripheral pulses: Peripheral pulses 2+ throughout Skin: General skin exam: no rashes or lesions noted Neuro: General: patient oriented x3 Extrem: Other: Right elbow signifcant erythema over the olecranon bursa. Incision site is packed with no active drainage. Able to flex and extend but has significant stiffness. Sensation is intact. Able to move hand and wrist. NVI. Procedures Date of Service Date of Service: 09/16/22 Progress Note: A&P Assessment and plan (1) Septic olecranon bursitis of right elbow: Status: Acute Assessment and Plan: Packing removed at bedside. New dressing placed Continue IV abx Encourage gentle ROM Plan for I&D tomorrow afternoon (2) Cellulitis and abscess of upper extremity: Status: Acute Time Spent With Patient Time: Total time managing care of this patient today ____ minutes. Quality Stroke Does the patient have a stroke diagnosis?: No VTE Prior VTE?: No VTE Risk Level:: Medical - low VTE Device Contraindication: Treatment Not Indicated VTE Drug Contraindication: Treatment Not Indicated
[2022-09-16] MEDS: 0.9 % Sodium Chloride Flush 3 ML SYRINGE IVFLUSH ×3 (09:05→20:56)
--- NOTE | 2022-09-16 13:10 | HO.PM.IMPN ---
Subjective Subjective Date of Service: 09/16/22 Interval History: No acute issues overnight. Remains afebrile. Dressing changed by Ortho this a.m. Review of Systems Denies chest pain Denies shortness of breath Denies nausea vomiting diarrhea Denies fever chills Physical Exam Vital Signs: Vital Signs: Last Vital Signs Temp 99.2 F 09/16/22 07:17 Pulse 86 09/16/22 07:17 Resp 16 09/16/22 07:17 BP 129/71 09/16/22 07:17 Pulse Ox 96 09/16/22 07:17 O2 Del Method Room Air 09/16/22 07:17 BMI result Body Mass Index 25.8 Const: Other: No acute distress Resp: Other: Clear to auscultation bilaterally no rales rhonchi wheezes Cardio: Other: No S4; positive S1-S2; no S3 murmurs rubs or gallops GI: Other: Soft nontender nondistended normoactive bowel sounds Extrem: Other: Price wrap to right elbow clean dry and intact Objective Data Active Medications Acetaminophen (Acetaminophen 325 Mg Tablet) 650 mg PO Q6H PRN PRN Reason: Pain, Mild (Pain Scale 1-3) Last Admin: 09/15/22 16:38 Dose: 650 mg Documented By: ALLIE Docusate Sodium (Docusate Sodium 100 Mg Capsule) 100 mg PO DAILY PRN PRN Reason: Constipation Ceftriaxone Sodium 1 gm/ (Sodium Chloride) 50 mls @ 100 mls/hr IV Q24H [facility] Last Infusion: 09/16/22 00:02 Dose: 0 mls/hr Documented By: JUAN Vancomycin HCl 1,250 mg/ (Sodium Chloride) 250 mls @ 166.667 mls/hr IV Q12H [facility] Last Infusion: 09/16/22 06:45 Dose: 0 mls/hr Documented By: JUAN Cefazolin Sodium/Dextrose (Ancef) 2 gm in 50 mls @ 100 mls/hr IV PREOP ONE Stop: 09/17/22 12:29 Ibuprofen (Ibuprofen 600 Mg Tablet) 600 mg PO Q8H PRN PRN Reason: Pain, Severe (Pain Scale 7-10) Last Admin: 09/16/22 09:04 Dose: 600 mg Documented By: ELMER Melatonin (Melatonin 3 Mg Tablet) 6 mg PO BEDTIME PRN PRN Reason: Insomnia Last Admin: 09/16/22 00:00 Dose: 6 mg Documented By: JUAN Ondansetron HCl (Ondansetron Hcl 4 Mg/2 Ml Vial) 4 mg IVPUSH Q8H PRN PRN Reason: Nausea and Vomiting Pharmacy Consult (Consult Rx Perform Med Rec) 1 each MISCELLANE ONCE PRN PRN Reason: Consult order Pharmacy Consult (Consult Rx Vancomycin Dosing) 1 each MISCELLANE DAILY PRN PRN Reason: Consult order Sodium Chloride (0.9 % Sodium Chloride Flush 3 Ml Syringe) 3 ml IVFLUSH QSHIFT [facility] Last Admin: 09/16/22 09:05 Dose: 3 ml Documented By: CHARTN Labs 09/15/22 06:00 09/16/22 05:19 Labs: Laboratory Results - last 24 hr 09/16/22 05:19 Estim Creat Clear Calc 129.6 Estimated GFR > 60 Microbiology Microbiology Results: Microbiology 09/15/22 01:41 Gram Stain - Final Elbow Right Routine Culture - Preliminary No growth to date. 09/14/22 19:05 Blood Culture - Preliminary Blood - Venous Coag negative Staphylococcus 09/14/22 20:01 Blood Culture - Preliminary Blood - Venous No growth after 24 hours. Assessment and Plan (1) Cellulitis and abscess of upper extremity: Status: Acute Plan 37-year-old male with past medical history of psoriasis presents to the hospital with complaints of elbow pain, swelling found to have cellulitis and small abscess ; drain in ER 1.Cellulitis and abscess of right upper extremity -ceftriaxone/vancomycin (2) -cultures pending -ortho following DVT prophylaxis: Early ambulation Requires ongoing hospitalization for IV antibiotics to treat cellulitis/abscess Time Spent With Patient Time: Total time managing care of this patient today ____ minutes. Quality Stroke Does the patient have a stroke diagnosis?: No VTE Prior VTE?: No VTE Risk Level:: Medical - low VTE Device Contraindication: Treatment Not Indicated VTE Drug Contraindication: Treatment Not Indicated
[2022-09-16] MEDS: oxyCODONE HCl Immed Release 5 MG TABLET PO ×2 (14:32→20:54)
[2022-09-16 14:50] LABS: Vancomycin Trough 4.3 mcg/mL (10.0-20.0)
--- NOTE | 2022-09-16 15:05 | HE.PHANOTE ---
RE: vanco Trough on 09/16 came back at 4.3; increased dose to 1250mg Q8H with predicted AUC 467mg/L, trough 11.1mg/L. Next level to be drawn 09/17/22 @1400
[2022-09-16 15:48] VITALS: BP 134/83; PULSE 96; RESP 18; TEMP 37.7; O2SAT 99
[2022-09-16] MEDS: Acetaminophen 325 MG TABLET 650 MG PO (16:11)
[2022-09-16 19:39] VITALS: BP 140/65; PULSE 89; RESP 15; TEMP 36.9; O2SAT 97
[2022-09-16] MEDS: Melatonin 3 MG TABLET 6 MG PO ×2 (20:54)
[2022-09-16] MEDS: cefTRIAXone sodium 1 GM in 0.9 % Sodium Chloride 50 ML IV (23:48)
[2022-09-17] VITALS (14 sets, daily range): BP systolic 113–159; BP diastolic 57–87; PULSE 59–90; RESP 16–25; TEMP 36.6–38.1; O2SAT 92–98
[2022-09-17] MEDS: vancomycin HCL 1,250 MG in 0.9 % Sodium Chloride 250 ML 166.67 MG IV ×2 (00:20→08:07)
[2022-09-17] MEDS: oxyCODONE HCl Immed Release 5 MG TABLET PO ×6 (01:00→20:15)
[2022-09-17] MEDS: Acetaminophen 325 MG TABLET 650 MG PO (01:09)
[2022-09-17 06:42] LABS: Creatinine Clr Calc Pharmacy 138.5; Estimated Glomerular Filt Rate > 60
[2022-09-17] MEDS: 0.9 % Sodium Chloride Flush 3 ML SYRINGE IVFLUSH ×3 (08:02→20:05)
[2022-09-17] MEDS: ondansetron HCL 4 MG/2 ML VIAL IVPUSH (09:18)
--- NOTE | 2022-09-17 11:26 | P.CONAN_ITS ---
[facility] Active Problems Active Problems: All Active Problems (Updated 09/15/22 @ 08:13 by Barbara Munoz PA-C) Septic olecranon bursitis of right elbow (Acute) Cellulitis and abscess of upper extremity (Acute) Past Medical History Medical History (Updated 09/15/22 @ 08:13 by Barbara Munoz PA-C) Psoriasis Family History Family history of problems with anesthesia: No Surgical History Surgical History (Updated 09/15/22 @ 05:13 by Sandra Levine MD) No pertinent past surgical history History of Problems with Anesthesia: No Social History Social History (Updated 09/15/22 @ 05:13 by Sandra Levine MD) Alcohol intake: current Patient Tobacco Use Status: Never used Tobacco Use of substances other than those prescribed or required for medical reasons: No Currently Displaying Signs/Symptoms of Drug Intoxication Withdrawal: No Are you DNR?: No Advance Directives: No Advance Directives Information Provided: No Recently lost weight without trying: No Nutrition Risks: No Nutritional Risk service: No Current occupational status: unemployed Meds Allergies Allergy/AdvReac Type Severity Reaction Status Date / Time No Known Allergies Allergy Verified 09/14/22 18:46 Active Medications: Current Medications Acetaminophen (Acetaminophen 325 Mg Tablet) 650 mg PO Q6H PRN PRN Reason: Pain, Mild (Pain Scale 1-3) Last Admin: 09/17/22 01:09 Dose: 650 mg Docusate Sodium (Docusate Sodium 100 Mg Capsule) 100 mg PO DAILY PRN PRN Reason: Constipation Ceftriaxone Sodium 1 gm/ (Sodium Chloride) 50 mls @ 100 mls/hr IV Q24H [facility] Last Infusion: 09/17/22 00:19 Dose: Infused Cefazolin Sodium/Dextrose (Ancef) 2 gm in 50 mls @ 100 mls/hr IV PREOP ONE Stop: 09/17/22 12:29 Vancomycin HCl 1,250 mg/ (Sodium Chloride) 250 mls @ 166.667 mls/hr IV Q8H [facility] Last Infusion: 09/17/22 09:41 Dose: Infused Ibuprofen (Ibuprofen 600 Mg Tablet) 600 mg PO Q8H PRN PRN Reason: Pain, Severe (Pain Scale 7-10) Last Admin: 09/16/22 09:04 Dose: 600 mg Melatonin (Melatonin 3 Mg Tablet) 6 mg PO BEDTIME PRN PRN Reason: Insomnia Last Admin: 09/16/22 20:54 Dose: 6 mg Ondansetron HCl (Ondansetron Hcl 4 Mg/2 Ml Vial) 4 mg IVPUSH Q8H PRN PRN Reason: Nausea and Vomiting Last Admin: 09/17/22 09:18 Dose: 4 mg Oxycodone HCl (Oxycodone Hcl Immed Release 5 Mg Tablet) 5 mg PO Q4H PRN PRN Reason: Pain, Moderate(Pain Scale 4-6) Last Admin: 09/17/22 06:22 Dose: 5 mg Pharmacy Consult (Consult Rx Perform Med Rec) 1 each MISCELLANE ONCE PRN PRN Reason: Consult order Pharmacy Consult (Consult Rx Vancomycin Dosing) 1 each MISCELLANE DAILY PRN PRN Reason: Consult order Sodium Chloride (0.9 % Sodium Chloride Flush 3 Ml Syringe) 3 ml IVFLUSH QSHIFT [facility] Last Admin: 09/17/22 08:02 Dose: 3 ml Home Medications Medication Instructions Recorded Confirmed Last Taken Type ibuprofen 800 mg tablet 800 mg PO TID PRN Pain 09/15/22 09/15/22 Unknown History sulfamethoxazole 800 1 tab PO BID 09/15/22 09/15/22 Unknown History mg-trimethoprim 160 mg tablet (Bactrim DS) Exam Exam Date and Time: September 17, 2022 112 Height,Weight and Vital Signs: Height 5 ft 9 in Weight 79.379 kg Last Vital Signs Temp 97.9 F 09/17/22 08:00 Pulse 88 09/17/22 08:00 Resp 18 09/17/22 08:00 BP 128/72 09/17/22 08:00 Pulse Ox 96 09/17/22 08:00 O2 Del Method Room Air 09/17/22 08:00 Pertinent Lab Results Pertinent Lab Results: Laboratory Tests 09/14/22 09/14/22 09/14/22 19:05 19:05 19:05 WBC 17.4 H RBC 5.10 Hgb 15.2 Hct 42.9 MCV 84.1 MCH 29.8 MCHC 35.4 RDW 11.4 Plt Count 285 MPV 8.3 L Immature Gran % (Auto) 0.3 Neut % (Auto) 74.8 H Lymph % (Auto) 14.2 L [place] % (Auto) 10.0 Eos % (Auto) 0.5 Baso % (Auto) 0.2 Lymph # (Auto) 2.5 [place] # (Auto) 1.8 H Eos # (Auto) 0.1 Baso # (Auto) 0.0 Abs Immat Gran (auto) 0.06 H Absolute Neuts (auto) 13.0 H Absolute Nucleated RBC 0.000 Nucleated RBC % (auto) 0.0 Smear Tech's Comments VERIFIED ESR 57 H PT INR APTT Sodium 135 Potassium 3.8 Chloride 103 Carbon Dioxide 21 L Anion Gap 15 BUN 14 Creatinine 0.92 Estim Creat Clear Calc 109.9 Estimated GFR > 60 Random Glucose 168 H Lactic Acid Calcium 9.3 Magnesium 2.1 Total Bilirubin 1.1 H Direct Bilirubin 0.4 AST 26 ALT 35 Alkaline Phosphatase 100 C-Reactive Protein 16.49 H Total Protein 7.8 Albumin 4.4 Vancomycin Trough COVID-19 ([facility]) COVID-19 [employer] 09/14/22 09/15/22 09/15/22 19:05 01:41 01:41 WBC RBC Hgb Hct MCV MCH MCHC RDW Plt Count MPV Immature Gran % (Auto) Neut % (Auto) Lymph % (Auto) [place] % (Auto) Eos % (Auto) Baso % (Auto) Lymph # (Auto) [place] # (Auto) Eos # (Auto) Baso # (Auto) Abs Immat Gran (auto) Absolute Neuts (auto) Absolute Nucleated RBC Nucleated RBC % (auto) Smear Tech's Comments ESR PT 11.9 INR 1.0 APTT 27.5 Sodium Potassium Chloride Carbon Dioxide Anion Gap BUN Creatinine Estim Creat Clear Calc Estimated GFR Random Glucose Lactic Acid 0.9 Calcium Magnesium Total Bilirubin Direct Bilirubin AST ALT Alkaline Phosphatase C-Reactive Protein Total Protein Albumin Vancomycin Trough COVID-19 ([facility]) Negative COVID-19 [employer] See Note 09/15/22 09/15/22 09/16/22 06:00 06:00 05:19 WBC 15.2 H RBC 4.59 L Hgb 13.6 L Hct 39.1 L MCV 85.2 MCH 29.6 MCHC 34.8 RDW 11.5 Plt Count 241 MPV 8.2 L Immature Gran % (Auto) 0.6 H Neut % (Auto) 79.8 H Lymph % (Auto) 8.1 L [place] % (Auto) 11.0 Eos % (Auto) 0.3 Baso % (Auto) 0.2 Lymph # (Auto) 1.2 [place] # (Auto) 1.7 H Eos # (Auto) 0.0 Baso # (Auto) 0.0 Abs Immat Gran (auto) 0.09 H Absolute Neuts (auto) 12.2 H Absolute Nucleated RBC 0.000 Nucleated RBC % (auto) 0.0 Smear Tech's Comments VERIFIED ESR PT INR APTT Sodium 134 L Potassium 4.3 Chloride 106 Carbon Dioxide 22 Anion Gap 10 L BUN 10 Creatinine 0.82 0.78 Estim Creat Clear Calc 123.3 129.6 Estimated GFR > 60 > 60 Random Glucose 102 Lactic Acid Calcium 8.3 L D Magnesium Total Bilirubin Direct Bilirubin AST ALT Alkaline Phosphatase C-Reactive Protein Total Protein Albumin Vancomycin Trough COVID-19 ([facility]) COVID-[employer] 09/16/22 09/17/22 13:57 05:31 WBC RBC Hgb Hct MCV MCH MCHC RDW Plt Count MPV Immature Gran % (Auto) Neut % (Auto) Lymph % (Auto) [place] % (Auto) Eos % (Auto) Baso % (Auto) Lymph # (Auto) [place] # (Auto) Eos # (Auto) Baso # (Auto) Abs Immat Gran (auto) Absolute Neuts (auto) Absolute Nucleated RBC Nucleated RBC % (auto) Smear Tech's Comments ESR PT INR APTT Sodium Potassium Chloride Carbon Dioxide Anion Gap BUN Creatinine 0.73 Estim Creat Clear Calc 138.5 Estimated GFR > 60 Random Glucose Lactic Acid Calcium Magnesium Total Bilirubin Direct Bilirubin AST ALT Alkaline Phosphatase C-Reactive Protein Total Protein Albumin Vancomycin Trough 4.3 L COVID-19 ([facility]) COVID-19 [employer] Airway Mallampati Class: II TM Dist: >3cm Neck ROM: Full Heart: rrr Lungs: cta Assessment and Plan Assessment Anesthesia Assessment: Anesthesia Plan Discussed and Chart Reviewed Final Anesthetic Review Family History of Problems with Anesthesia: No History of Problems with Anesthesia: No NPO: Yes ASA Class: II Final Preanesthetic Review: No Changes in Pt Med Stat, Meds/Allgs Chart Reviewed and Consent Obtained/Reviewed Patient Risk: Intermediate Procedure Risk: Intermediate Anesthetic Plan Anesthetic Plan: MAC: Disposition: Standard PACU
[2022-09-17] MEDS: ceFAZolin Sodium/Dextrose,Iso 2 GM/50 ML PIGGYBACK IV (11:45)
[2022-09-17] MEDS: Docusate Sodium 100 MG CAPSULE PO (11:47)
--- NOTE | 2022-09-17 12:35 | HO.PM.IMPN ---
Subjective Subjective Date of Service: 09/17/22 Interval History: No acute issues overnight. For OR today for I and D Review of Systems Denies chest pain Denies shortness of breath Denies nausea vomiting diarrhea Denies fever chills Physical Exam Vital Signs: Vital Signs: Last Vital Signs Temp 97.9 F 09/17/22 08:00 Pulse 88 09/17/22 08:00 Resp 18 09/17/22 08:00 BP 128/72 09/17/22 08:00 Pulse Ox 96 09/17/22 08:00 O2 Del Method Room Air 09/17/22 08:00 BMI result Body Mass Index 25.8 Const: Other: No acute distress Resp: Other: Clear to auscultation bilaterally no rales rhonchi wheezes Cardio: Other: No S4; positive S1-S2; no S3 murmurs rubs or gallops GI: Other: Soft nontender nondistended normoactive bowel sounds Extrem: Other: Price wrap to right elbow clean dry and intact Objective Data Active Medications Acetaminophen (Acetaminophen 325 Mg Tablet) 650 mg PO Q6H PRN PRN Reason: Pain, Mild (Pain Scale 1-3) Last Admin: 09/17/22 01:09 Dose: 650 mg Documented By: JUAN Docusate Sodium (Docusate Sodium 100 Mg Capsule) 100 mg PO DAILY PRN PRN Reason: Constipation Last Admin: 09/17/22 11:47 Dose: 100 mg Documented By: ALLIE Ceftriaxone Sodium 1 gm/ (Sodium Chloride) 50 mls @ 100 mls/hr IV Q24H [facility] Last Infusion: 09/17/22 00:19 Dose: 0 mls/hr Documented By: JUAN Vancomycin HCl 1,250 mg/ (Sodium Chloride) 250 mls @ 166.667 mls/hr IV Q8H [facility] Last Infusion: 09/17/22 09:41 Dose: 0 mls/hr Documented By: ALLIE Ibuprofen (Ibuprofen 600 Mg Tablet) 600 mg PO Q8H PRN PRN Reason: Pain, Severe (Pain Scale 7-10) Last Admin: 09/16/22 09:04 Dose: 600 mg Documented By: ELMER Melatonin (Melatonin 3 Mg Tablet) 6 mg PO BEDTIME PRN PRN Reason: Insomnia Last Admin: 09/16/22 20:54 Dose: 6 mg Documented By: JUAN Ondansetron HCl (Ondansetron Hcl 4 Mg/2 Ml Vial) 4 mg IVPUSH Q8H PRN PRN Reason: Nausea and Vomiting Last Admin: 09/17/22 09:18 Dose: 4 mg Documented By: ALLIE Oxycodone HCl (Oxycodone Hcl Immed Release 5 Mg Tablet) 5 mg PO Q4H PRN PRN Reason: Pain, Moderate(Pain Scale 4-6) Last Admin: 09/17/22 11:47 Dose: 5 mg Documented By: ALLIE Pharmacy Consult (Consult Rx Perform Med Rec) 1 each MISCELLANE ONCE PRN PRN Reason: Consult order Pharmacy Consult (Consult Rx Vancomycin Dosing) 1 each MISCELLANE DAILY PRN PRN Reason: Consult order Sodium Chloride (0.9 % Sodium Chloride Flush 3 Ml Syringe) [facility] Last Admin: 09/17/22 08:02 Dose: 3 ml Documented By: ALLIE Labs 09/15/22 06:00 09/17/22 05:31 Labs: Laboratory Results - last 24 hr 09/16/22 09/17/22 13:57 05:31 Estim Creat Clear Calc 138.5 Estimated GFR > 60 Vancomycin Trough 4.3 L Microbiology Microbiology Results: Microbiology 09/15/22 01:41 Gram Stain - Final Elbow Right Routine Culture - Final No growth after 2 days 09/14/22 19:05 Blood Culture - Final Blood - Venous Coag negative Staphylococcus 09/15/22 21:19 Blood Culture - Preliminary Blood - Venous No growth after 24 hours. 09/15/22 21:19 Blood Culture - Preliminary Blood - Venous No growth after 24 hours. 09/14/22 20:01 Blood Culture - Preliminary Blood - Venous No growth after 48 hours. Assessment and Plan (1) Cellulitis and abscess of upper extremity: Status: Acute Plan 37-year-old male with past medical history of psoriasis presents to the hospital with complaints of elbow pain, swelling found to have cellulitis and small abscess ; drain in ER 1.Cellulitis and abscess of right upper extremity -ceftriaxone/vancomycin (3) -cultures pending -2 OR today for I + D DVT prophylaxis: Early ambulation Requires ongoing hospitalization for IV antibiotics to treat cellulitis/abscess Time Spent With Patient Time: Total time managing care of this patient today ____ minutes. Quality Stroke Does the patient have a stroke diagnosis?: No VTE Prior VTE?: No VTE Risk Level:: Medical - low VTE Device Contraindication: Treatment Not Indicated VTE Drug Contraindication: Treatment Not Indicated
--- NOTE | 2022-09-17 13:14 | MHC.SHP ---
Pre-Procedural Eval Section A Date of Service: 09/17/22 The patient is an INPATIENT: Yes Changes since office visit: No Cold of Flu in the past 2 weeks, No New Medical Problems, No Changes in Medication and No Patient answered all questions The History & Physical has been completed within 30 days and I have reviewed it.: Yes Section B Chief Complaint: Cellulitis, Abscess Allergies: Allergies Allergy/AdvReac Type Severity Reaction Status Date / Time No Known Allergies Allergy Verified 09/14/22 18:46 Plan I have reviewed the history and physical and performed a pertinent physical examination on my patient. No changes have occurred unless specified. Time Spent With Patient Time: Total time managing care of this patient today ____ minutes.
--- NOTE | 2022-09-17 14:19 | P.BOP_ITS ---
Brief Operative Note Date of Service: 09/17/22 Pre-op diagnosis: Right septic olecranon bursitis Post-op diagnosis: same Procedure: 1) Irrigation and debridement right elbow 2) Placement of vacuum assisted dressing Implants: none Surgeon: Richard Callejas MD Anesthesia: GETA Was an Medical Claims Assistant used for this Procedure?: No Estimated blood loss (mL): 100 Tourniquet time (min): 20 IV fluids (mL): 750 Pathology: none sent Condition: stable Disposition: PACU
[2022-09-17] MEDS: HYDROmorphone HCl 0.5 MG/0.5 ML SYRINGE IVPUSH ×3 (14:20→17:16)
--- NOTE | 2022-09-17 14:36 | MHC.CM.PN ---
per rounds pt is not ready for dc plan remains home no servceis
[2022-09-17] MEDS: Acetaminophen 1,000 MG/100 ML PIGGYBACK 400 MG IV (14:40)
[2022-09-17 16:18] LABS: Vancomycin Trough 7.1 mcg/mL (10.0-20.0)
[2022-09-17] MEDS: vancomycin HCL 1,500 MG in 0.9 % Sodium Chloride 500 ML 333.33 MG IV (18:09)
[2022-09-17] MEDS: cefTRIAXone sodium 1 GM in 0.9 % Sodium Chloride 50 ML IV (21:45)
[2022-09-17] MEDS: Melatonin 3 MG TABLET 6 MG PO (21:45)
[2022-09-18] MEDS: vancomycin HCL 1,500 MG in 0.9 % Sodium Chloride 500 ML 333.33 MG IV ×2 (01:54→17:11)
[2022-09-18] MEDS: oxyCODONE HCl Immed Release 5 MG TABLET PO (02:11)
[2022-09-18 04:00] VITALS: BP 119/72; PULSE 75; RESP 16; TEMP 37.4; O2SAT 96
[2022-09-18] MEDS: Ibuprofen 600 MG TABLET PO (05:15)
[2022-09-18 06:50] LABS: Estimated Glomerular Filt Rate > 60
[2022-09-18 07:53] VITALS: BP 122/67; PULSE 70; RESP 16; TEMP 36.6; O2SAT 95
[2022-09-18] MEDS: vancomycin HCL 1,500 MG in 0.9 % Sodium Chloride 500 ML 333 MG IV (09:27)
[2022-09-18] MEDS: 0.9 % Sodium Chloride Flush 3 ML SYRINGE IVFLUSH ×3 (09:29→20:37)
[2022-09-18] MEDS: oxyCODONE HCl Immed Release 5 MG TABLET 10 MG PO ×3 (09:37→20:36)
--- NOTE | 2022-09-18 10:12 | PM.PNORT ---
Subjective Subjective Date of Service: 09/18/22 Interval history: POD1 s/p right elbow bursa I&D. Resting in bed comfortably. Pain is managed. No overnight events. No additional complaints. Physical Exam Vital Signs: Vital Signs: Last Vital Signs Temp 97.8 F 09/18/22 07:53 Pulse 70 09/18/22 07:53 Resp 16 09/18/22 07:53 BP 122/67 09/18/22 07:53 Pulse Ox 95 09/18/22 07:53 O2 Del Method Room Air 09/18/22 07:53 O2 Flow Rate 2.5 09/17/22 16:23 BMI result Body Mass Index 25.8 Const: General: cooperative, healthy appearing and no acute distress Resp: Effort & Inspection: normal respiratory effort and able to speak in complete sentences Cardio: Rate: regular rate Peripheral pulses: Peripheral pulses 2+ throughout GI: Palpation (GI): Soft to palpation Skin: Lesions: no lesions Rashes: no rashes Extrem: Other: Right elbow bandages are intact. Vacuum assisted wound device is functioning appropriately. Swelling into the hand. Able to slightly flex and extend. NVI. Procedures Date of Service Date of Service: 09/18/22 Progress Note: A&P Assessment and plan (1) Septic olecranon bursitis of right elbow: Status: Acute Assessment and Plan: Vacuum assisted device to remain in place and functioning Continue IV abx Encourage gentle ROM hand (2) Cellulitis and abscess of upper extremity: Status: Acute Time Spent With Patient Time: Total time managing care of this patient today ____ minutes. Quality Stroke Does the patient have a stroke diagnosis?: No VTE Prior VTE?: No VTE Risk Level:: Medical - low VTE Device Contraindication: Treatment Not Indicated VTE Drug Contraindication: Treatment Not Indicated
--- NOTE | 2022-09-18 10:36 | P.PNIM_ITS ---
Subjective Subjective Date of Service: 09/18/22 Interval History: No acute issues overnight. Pain markedly improved since yesterday afternoon. Tolerating wound VAC Review of Systems Denies chest pain Denies shortness of breath Denies nausea vomiting diarrhea Denies fever chills Physical Exam Vital Signs: Vital Signs: Last Vital Signs Temp 97.8 F 09/18/22 07:53 Pulse 70 09/18/22 07:53 Resp 16 09/18/22 07:53 BP 122/67 09/18/22 07:53 Pulse Ox 95 09/18/22 07:53 O2 Del Method Room Air 09/18/22 07:53 O2 Flow Rate 2.5 09/17/22 16:23 BMI result Body Mass Index 25.8 Const: Other: No acute distress Resp: Other: Clear to auscultation bilaterally no rales rhonchi wheezes Cardio: Other: No S4; positive S1-S2; no S3 murmurs rubs or gallops GI: Other: Soft nontender nondistended normoactive bowel sounds Extrem: Other: Price wrap to right elbow clean dry and intact Objective Data Active Medications Acetaminophen (Acetaminophen 325 Mg Tablet) 650 mg PO Q6H PRN PRN Reason: Pain, Mild (Pain Scale 1-3) Last Admin: 09/17/22 01:09 Dose: 650 mg Documented By: JUAN Docusate Sodium (Docusate Sodium 100 Mg Capsule) 100 mg PO DAILY PRN PRN Reason: Constipation Last Admin: 09/17/22 11:47 Dose: 100 mg Documented By: ALLIE Hydromorphone HCl (Hydromorphone Hcl 0.5 Mg/0.5 Ml Syringe) 0.5 mg IVPUSH Q5M PRN; Protocol PRN Reason: Pain, Severe (Pain Scale 7-10) Last Admin: 09/17/22 14:30 Dose: 0.5 mg Documented By: YARIEL Hydromorphone HCl (Hydromorphone Hcl 0.5 Mg/0.5 Ml Syringe) 0.5 mg IVPUSH Q3H PRN; Protocol PRN Reason: Pain, Severe (Pain Scale 7-10) Ceftriaxone Sodium 1 gm/ (Sodium Chloride) 50 mls @ 100 mls/hr IV Q24H [facility] Last Infusion: 09/17/22 22:33 Dose: 0 mls/hr Documented By: ANSLEY Vancomycin HCl 1,500 mg/ (Sodium Chloride) 500 mls @ 333.333 mls/hr IV Q8H [facility] Last Admin: 09/18/22 09:27 Dose: 333 mls/hr Documented By: MATTHEW Ibuprofen (Ibuprofen 600 Mg Tablet) 600 mg PO Q8H PRN PRN Reason: Pain, Severe (Pain Scale 7-10) Last Admin: 09/18/22 05:15 Dose: 600 mg Documented By: ANSLEY Melatonin (Melatonin 3 Mg Tablet) 6 mg PO BEDTIME PRN PRN Reason: Insomnia Last Admin: 09/17/22 21:45 Dose: 6 mg Documented By: ANSLEY Ondansetron HCl (Ondansetron Hcl 4 Mg/2 Ml Vial) 4 mg IVPUSH Q8H PRN PRN Reason: Nausea and Vomiting Last Admin: 09/17/22 09:18 Dose: 4 mg Documented By: ALLIE Ondansetron HCl (Ondansetron Hcl 4 Mg/2 Ml Vial) 4 mg IVPUSH ONCE PRN PRN Reason: Nausea and Vomiting Oxycodone HCl (Oxycodone Hcl Immed Release 5 Mg Tablet) 5 mg PO Q4H PRN PRN Reason: Pain, Moderate(Pain Scale 4-6) Last Admin: 09/18/22 02:11 Dose: 5 mg Documented By: ANSLEY Oxycodone HCl (Oxycodone Hcl Immed Release 5 Mg Tablet) 10 mg PO Q4H PRN PRN Reason: Pain, Moderate(Pain Scale 4-6) Last Admin: 09/18/22 09:37 Dose: 10 mg Documented By: MATTHEW Pharmacy Consult (Consult Rx Perform Med Rec) 1 each MISCELLANE ONCE PRN PRN Reason: Consult order Pharmacy Consult (Consult Rx Vancomycin Dosing) 1 each MISCELLANE DAILY PRN PRN Reason: Consult order Sodium Chloride (0.9 % Sodium Chloride Flush 3 Ml Syringe) [facility] [place] Last Admin: 09/18/22 09:29 Dose: 3 ml Documented By: MATTHEW Labs 09/15/22 06:00 09/18/22 05:53 Labs: Laboratory Results - last 24 hr 09/17/22 09/18/22 15:56 05:53 Estim Creat Clear Calc 133.0 Estimated GFR > 60 Vancomycin Trough 7.1 L Microbiology Microbiology Results: Microbiology 09/15/22 21:19 Blood Culture - Preliminary Blood - Venous No growth after 48 hours. 09/15/22 21:19 Blood Culture - Preliminary Blood - Venous No growth after 48 hours. 09/15/22 01:41 Gram Stain - Final Elbow Right Routine Culture - Final No growth after 2 days 09/14/22 19:05 Blood Culture - Final Blood - Venous Coag negative Staphylococcus Assessment and Plan (1) Septic olecranon bursitis of right elbow: Status: Acute Plan 37-year-old male with past medical history of psoriasis presents to the hospital with complaints of elbow pain, swelling found to have cellulitis and small abscess ; drain in ER 1.Cellulitis and abscess of right upper extremity -ceftriaxone/vancomycin (4) -cultures negative DVT prophylaxis: Early ambulation Requires ongoing hospitalization for IV antibiotics to treat cellulitis/abscess Time Spent With Patient Time: Total time managing care of this patient today ____ minutes. Quality Stroke Does the patient have a stroke diagnosis?: No VTE Prior VTE?: No VTE Risk Level:: Medical - low VTE Device Contraindication: Treatment Not Indicated VTE Drug Contraindication: Treatment Not Indicated
[2022-09-18 12:00] VITALS: BP 138/77; PULSE 76; RESP 18; TEMP 37.4; O2SAT 98
[2022-09-18 15:41] VITALS: BP 154/73; PULSE 95; RESP 20; TEMP 38.9; O2SAT 98
[2022-09-18] MEDS: Acetaminophen 325 MG TABLET 650 MG PO (15:48)
--- NOTE | 2022-09-18 16:35 | PC.NURSE ---
updated pts Anastasia via the phone on pts status , reassurance provided
[2022-09-18 16:46] LABS: Vancomycin Random 12.3 mcg/mL (15-20)
[2022-09-18 16:58] VITALS: TEMP 38.1
[2022-09-18 17:27] LABS: Lactic Acid 0.7 mmol/L (0.5-2.0)
--- NOTE | 2022-09-18 17:28 | HO.POSTANES ---
Post Anesthesia Evaluation Post Anesthesia Evaluation Vital Signs: Vital Signs Temp Pulse Resp BP Pulse Ox O2 Del Method 09/18/22 16:58 100.6 F H 09/18/22 15:41 102.0 F H 95 20 154/73 H 98 Room Air 09/18/22 14:26 Room Air 09/18/22 12:00 99.3 F 76 18 138/77 98 Room Air 09/18/22 07:53 97.8 F 70 16 122/67 95 Room Air Anesthesia: General LMA Mental Status: Awake Pain Control: Satisfactory Nausea/Vomiting: None Hydration: Adequate Anesthesia-Related Issues: No Anes. Related Issues
[2022-09-18 19:23] VITALS: BP 144/88; PULSE 88; RESP 18; TEMP 37.3; O2SAT 96
[2022-09-18] MEDS: cefTRIAXone sodium 1 GM in 0.9 % Sodium Chloride 50 ML IV (21:36)
[2022-09-19] VITALS (10 sets, daily range): BP systolic 126–137; BP diastolic 69–81; PULSE 76–106; RESP 15–18; TEMP 36.2–37.7; O2SAT 93–97
[2022-09-19] MEDS: vancomycin HCL 1,500 MG in 0.9 % Sodium Chloride 500 ML 333.33 MG IV ×2 (01:24→09:05)
[2022-09-19] MEDS: Melatonin 3 MG TABLET 6 MG PO (01:24)
[2022-09-19] MEDS: oxyCODONE HCl Immed Release 5 MG TABLET 10 MG PO ×2 (01:24→08:24)
[2022-09-19 06:36] LABS: Creatinine Clr Calc Pharmacy 138.5; Estimated Glomerular Filt Rate > 60
[2022-09-19] MEDS: 0.9 % Sodium Chloride Flush 3 ML SYRINGE IVFLUSH (09:05)
--- NOTE | 2022-09-19 09:20 | PM.PNORT ---
Subjective Subjective Date of Service: 09/19/22 Interval history: POD2 s/p right elbow bursa I&D. Resting in bed. Complains of pain. No overnight events. No additional complaints. Physical Exam Vital Signs: Vital Signs: Last Vital Signs Temp 98.7 F 09/19/22 07:48 Pulse 82 09/19/22 07:48 Resp 16 09/19/22 07:48 BP 127/74 09/19/22 07:48 Pulse Ox 95 09/19/22 07:48 O2 Del Method Room Air 09/19/22 07:48 O2 Flow Rate 2.5 09/17/22 16:23 BMI result Body Mass Index 25.8 Const: General: cooperative, healthy appearing and no acute distress Resp: Effort & Inspection: normal respiratory effort and able to speak in complete sentences Cardio: Rate: regular rate Peripheral pulses: Peripheral pulses 2+ throughout GI: Palpation (GI): Soft to palpation Skin: Lesions: no lesions Rashes: no rashes Extrem: Other: Right elbow bandages are intact. Vacuum assisted wound device is functioning appropriately. Swelling into the hand. Able to slightly flex and extend. NVI. Procedures Date of Service Date of Service: 09/19/22 Progress Note: A&P Assessment and plan (1) Septic olecranon bursitis of right elbow: Status: Acute Assessment and Plan: Vacuum assisted device to remain in place and functioning 50 suction Continue IV abx Encourage gentle ROM hand NPO after midnight Plan to bring to OR tomorrow for second I&D (2) Cellulitis and abscess of upper extremity: Status: Acute Time Spent With Patient Time: Total time managing care of this patient today ____ minutes. Quality Stroke Does the patient have a stroke diagnosis?: No VTE Prior VTE?: No VTE Risk Level:: Medical - low VTE Device Contraindication: Treatment Not Indicated VTE Drug Contraindication: Treatment Not Indicated
--- NOTE | 2022-09-19 09:23 | P.CONOP_ITS ---
History of Present Illness HPI Consult date: 09/15/22 Consult reason: other Chief complaint: Cellulitis, Abscess Narrative: [place] is a 37 yo who presented to the ED with cellulitis of the right elbow/olecranon. He reported several days of swelling and pain and had been to an urgent care where he was given bctrim. He presented with worsening symptoms and presented to the ED. He reports travelling to the [place] in which he injured his elbow on a water slide 2 weeks prior. On inii eval he c/o right elbow pain and there was erytyhema and w packed wound with scant purulent drainage. PMFSH Past Medical History Medical History (Updated 09/15/22 @ 08:13 by Barbara Munoz PA-C) Psoriasis Surgical History Surgical History (Updated 09/15/22 @ 05:13 by Sandra Levine MD) No pertinent past surgical history Social History Social History (Updated 09/15/22 @ 05:13 by Sandra Levine MD) Alcohol intake: current Patient Tobacco Use Status: Never used Tobacco Use of substances other than those prescribed or required for medical reasons: No Currently Displaying Signs/Symptoms of Drug Intoxication Withdrawal: No Are you DNR?: No Advance Directives: No Advance Directives Information Provided: No Recently lost weight without trying: No Nutrition Risks: No Nutritional Risk service: No Current occupational status: unemployed Meds Allergies Allergy/AdvReac Type Severity Reaction Status Date / Time No Known Allergies Allergy Verified 09/14/22 18:46 Active Medications: Current Medications Acetaminophen (Acetaminophen 325 Mg Tablet) 650 mg PO Q6H PRN PRN Reason: Pain, Mild (Pain Scale 1-3) Last Admin: 09/18/22 15:48 Dose: 650 mg Docusate Sodium (Docusate Sodium 100 Mg Capsule) 100 mg PO DAILY PRN PRN Reason: Constipation Last Admin: 09/17/22 11:47 Dose: 100 mg Hydromorphone HCl (Hydromorphone Hcl 0.5 Mg/0.5 Ml Syringe) 0.5 mg IVPUSH Q5M PRN; Protocol PRN Reason: Pain, Severe (Pain Scale 7-10) Last Admin: 09/17/22 14:30 Dose: 0.5 mg Hydromorphone HCl (Hydromorphone Hcl 0.5 Mg/0.5 Ml Syringe) 0.5 mg IVPUSH Q3H PRN; Protocol PRN Reason: Pain, Severe (Pain Scale 7-10) Ceftriaxone Sodium 1 gm/ (Sodium Chloride) 50 mls @ 100 mls/hr IV Q24H [facility] Last Infusion: 09/18/22 22:25 Dose: Infused Vancomycin HCl 1,500 mg/ (Sodium Chloride) 500 mls @ 333.333 mls/hr IV Q8H [facility] Last Admin: 09/19/22 09:05 Dose: 333.33 mls/hr Ibuprofen (Ibuprofen 600 Mg Tablet) 600 mg PO Q8H PRN PRN Reason: Pain, Severe (Pain Scale 7-10) Last Admin: 09/18/22 05:15 Dose: 600 mg Melatonin (Melatonin 3 Mg Tablet) 6 mg PO BEDTIME PRN PRN Reason: Insomnia Last Admin: 09/19/22 01:24 Dose: 6 mg Ondansetron HCl (Ondansetron Hcl 4 Mg/2 Ml Vial) 4 mg IVPUSH Q8H PRN PRN Reason: Nausea and Vomiting Last Admin: 09/17/22 09:18 Dose: 4 mg Ondansetron HCl (Ondansetron Hcl 4 Mg/2 Ml Vial) 4 mg IVPUSH ONCE PRN PRN Reason: Nausea and Vomiting Oxycodone HCl (Oxycodone Hcl Immed Release 5 Mg Tablet) 5 mg PO Q4H PRN PRN Reason: Pain, Moderate(Pain Scale 4-6) Last Admin: 09/18/22 02:11 Dose: 5 mg Oxycodone HCl (Oxycodone Hcl Immed Release 5 Mg Tablet) 10 mg PO Q4H PRN PRN Reason: Pain, Moderate(Pain Scale 4-6) Last Admin: 09/19/22 08:24 Dose: 10 mg Pharmacy Consult (Consult Rx Perform Med Rec) 1 each MISCELLANE ONCE PRN PRN Reason: Consult order Pharmacy Consult (Consult Rx Vancomycin Dosing) 1 each MISCELLANE DAILY PRN PRN Reason: Consult order Sodium Chloride (0.9 % Sodium Chloride Flush 3 Ml Syringe) [facility] Last Admin: 09/19/22 09:05 Dose: 3 ml Home Medications Medication Instructions Recorded Confirmed Last Taken Type ibuprofen 800 mg tablet 800 mg PO TID PRN Pain 09/15/22 09/15/22 Unknown History sulfamethoxazole 800 1 tab PO BID 09/15/22 09/15/22 Unknown History mg-trimethoprim 160 mg tablet (Bactrim DS) Physical Exam Vital Signs: Vital Signs: Last Vital Signs Temp 98.7 F 09/19/22 07:48 Pulse 82 09/19/22 07:48 Resp 16 09/19/22 07:48 BP 127/74 09/19/22 07:48 Pulse Ox 95 09/19/22 07:48 O2 Del Method Room Air 09/19/22 07:48 O2 Flow Rate 2.5 09/17/22 16:23 BMI result Body Mass Index 25.8 Extrem: Other: HD#1:exam c/w olecranon bursitis. SILT right hand. Scant purulent drainage from draining wound with packing HD#2: worsening erythema and pain. Increased drainage. Skin intact Results Labs 09/15/22 06:00 09/19/22 05:50 Labs: Abnormal lab results 09/18/22 Range/Units 15:55 Random Vancomycin 12.3 L (15-20) mcg/mL H & H 09/14/22 09/15/22 Range/Units 19:05 06:00 Hgb 15.2 13.6 L (14.0-18.0) g/dl Hct 42.9 39.1 L (42.0-52.0) % Coagulation 09/15/22 Range/Units 01:41 INR 1.0 (0.9-1.1) All other labs normal. Assessment and Plan (1) Cellulitis and abscess of upper extremity: Status: Acute Plan At the time of first visit Tion has erythema over a drainage olecranon septic bursa. He was on Vanco and Zosyn and the plan was to continue to monitor. On HD#1 (09/16/22). He was re-evaluated on HD#2 and there was worsening pain, erythema and swelling over the olecranon and extending distally and proximally with continued drainage. He was kept NPO and taken to the OR the following day. In the operating room the dressing was taken down and the erythema had worsened and there was significant loss of skin over the olecranon region. The wound was debrided of devitalized tissue and cleaned and a wound vac sponge was applied. Today POD#2 I attempted to change the dressing but his pain was worse and the was erythema distal to the wound vac. The decision was made to return to the operating room today for I&D. Time Spent With Patient Time: Total time managing care of this patient today ____ minutes. Procedures Date of Service Date of Service: 09/19/22
--- NOTE | 2022-09-19 09:42 | P.OP_ITS ---
Operative Note Operative Note Date of Service: 09/17/22 Narrative: Brief Operative Note Date of Service: 09/17/22 Pre-op diagnosis: Right septic olecranon bursitis Post-op diagnosis: same Procedure: 1) Irrigation and debridement right elbow 2) Placement of vacuum assisted dressing Implants: none Surgeon: Richard Callejas MD Anesthesia: GETA Was an Water Pipe Installer used for this Procedure?: No Estimated blood loss (mL): 100 Tourniquet time (min): 20 IV fluids (mL): 750 Pathology: none sent Condition: stable Disposition: PACU Procedure in detail: Patient was brought to the operating room and placed supine on the surgical table. He was prepped and draped in standard sterile fashion and a time out was called to identify proper site, proper procedure. The wound had progressed extensively since the previous exam. There was a large bullous lesion with necrotic skin over the olecranon. There was loss of skin over the olecranon. Proximally and distally there was undermining of the skin with moderate purulence. The skin was viable proximal distal to the olecranon but immediately over the olecranon bursa and just distal to the bursa there was full-thickness loss of skin measuring 3 x 5 cm approximately. I was unable to close this. There was no deep involvement and the fascia over the extensors was intact. There was no penetration medially around the ulnar nerve. I debrided the wound gently removing any devitalized tissue and trying to preserve any viable tissue. I irrigated copiously with 6 L of warm saline. I tried to close some of the skin but it was too friable therefore I placed a wound VAC sponge over the wound and placed this on 50 mm of suction. It was holding suction. The limb was placed in padded dressing and he was awakened from anesthesia and brought to the recovery room in stable condition .There were no known complications.
--- NOTE | 2022-09-19 10:56 | HO.PM.IMPN ---
Subjective Subjective Date of Service: 09/19/22 Interval History: Pain control adequate. To OR later this afternoon Review of Systems Denies chest pain Denies shortness of breath Denies nausea vomiting diarrhea Denies fever chills Physical Exam Vital Signs: Vital Signs: Last Vital Signs Temp 98.7 F 09/19/22 07:48 Pulse 82 09/19/22 07:48 Resp 16 09/19/22 07:48 BP 127/74 09/19/22 07:48 Pulse Ox 95 09/19/22 07:48 O2 Del Method Room Air 09/19/22 07:48 O2 Flow Rate 2.5 09/17/22 16:23 BMI result Body Mass Index 25.8 Const: Other: No acute distress Resp: Other: Clear to auscultation bilaterally no rales rhonchi wheezes Cardio: Other: No S4; positive S1-S2; no S3 murmurs rubs or gallops GI: Other: Soft nontender nondistended normoactive bowel sounds Extrem: Other: Price wrap to right elbow clean dry and intact Objective Data Active Medications Acetaminophen (Acetaminophen 325 Mg Tablet) 650 mg PO Q6H PRN PRN Reason: Pain, Mild (Pain Scale 1-3) Last Admin: 09/18/22 15:48 Dose: 650 mg Documented By: MATTHEW Docusate Sodium (Docusate Sodium 100 Mg Capsule) 100 mg PO DAILY PRN PRN Reason: Constipation Last Admin: 09/17/22 11:47 Dose: 100 mg Documented By: ALLIE Hydromorphone HCl (Hydromorphone Hcl 0.5 Mg/0.5 Ml Syringe) 0.5 mg IVPUSH Q5M PRN; Protocol PRN Reason: Pain, Severe (Pain Scale 7-10) Last Admin: 09/17/22 14:30 Dose: 0.5 mg Documented By: YARIEL Hydromorphone HCl (Hydromorphone Hcl 0.5 Mg/0.5 Ml Syringe) 0.5 mg IVPUSH Q3H PRN; Protocol PRN Reason: Pain, Severe (Pain Scale 7-10) Ceftriaxone Sodium 1 gm/ (Sodium Chloride) 50 mls @ 100 mls/hr IV Q24H [facility] Last Infusion: 09/18/22 22:25 Dose: 0 mls/hr Documented By: ANSLEY Vancomycin HCl 1,500 mg/ (Sodium Chloride) 500 mls @ 333.333 mls/hr IV Q8H [facility] Last Infusion: 09/19/22 10:39 Dose: 0 mls/hr Documented By: MATTHEW Ibuprofen (Ibuprofen 600 Mg Tablet) 600 mg PO Q8H PRN PRN Reason: Pain, Severe (Pain Scale 7-10) Last Admin: 09/18/22 05:15 Dose: 600 mg Documented By: ANSLEY Melatonin (Melatonin 3 Mg Tablet) 6 mg PO BEDTIME PRN PRN Reason: Insomnia Last Admin: 09/19/22 01:24 Dose: 6 mg Documented By: ANSLEY Ondansetron HCl (Ondansetron Hcl 4 Mg/2 Ml Vial) 4 mg IVPUSH Q8H PRN PRN Reason: Nausea and Vomiting Last Admin: 09/17/22 09:18 Dose: 4 mg Documented By: ALLIE Ondansetron HCl (Ondansetron Hcl 4 Mg/2 Ml Vial) 4 mg IVPUSH ONCE PRN PRN Reason: Nausea and Vomiting Oxycodone HCl (Oxycodone Hcl Immed Release 5 Mg Tablet) 5 mg PO Q4H PRN PRN Reason: Pain, Moderate(Pain Scale 4-6) Last Admin: 09/18/22 02:11 Dose: 5 mg Documented By: ANSLEY Oxycodone HCl (Oxycodone Hcl Immed Release 5 Mg Tablet) 10 mg PO Q4H PRN PRN Reason: Pain, Moderate(Pain Scale 4-6) Last Admin: 09/19/22 08:24 Dose: 10 mg Documented By: MATTHEW Pharmacy Consult (Consult Rx Perform Med Rec) 1 each MISCELLANE ONCE PRN PRN Reason: Consult order Pharmacy Consult (Consult Rx Vancomycin Dosing) 1 each MISCELLANE DAILY PRN PRN Reason: Consult order Sodium Chloride (0.9 % Sodium Chloride Flush 3 Ml Syringe) [facility] Last Admin: 09/19/22 09:05 Dose: 3 ml Documented By: MATTHEW Labs 09/15/22 06:00 09/19/22 05:50 Labs: Laboratory Results - last 24 hr 09/18/22 09/18/22 09/19/22 15:55 17:00 05:50 Estim Creat Clear Calc 138.5 Estimated GFR > 60 Lactic Acid 0.7 Random Vancomycin 12.3 L Assessment and Plan (1) Septic olecranon bursitis of right elbow: Status: Acute Plan 37-year-old male with past medical history of psoriasis presents to the hospital with complaints of elbow pain, swelling found to have cellulitis and small abscess ; drain in ER 1.Cellulitis and abscess of right upper extremity -ceftriaxone/vancomycin (5) -cultures negative ?DVT prophylaxis:? Early ambulation Requires ongoing hospitalization for IV antibiotics to treat cellulitis/abscess Time Spent With Patient Time: Total time managing care of this patient today ____ minutes. Quality Stroke Does the patient have a stroke diagnosis?: No VTE Prior VTE?: No VTE Risk Level:: Medical - low VTE Device Contraindication: Treatment Not Indicated VTE Drug Contraindication: Treatment Not Indicated
--- NOTE | 2022-09-19 12:24 | P.CONAN_ITS ---
HPI - Anesthesia Eval Consult details Narrative: Right elbow bursitis PMFSH Active Problems Active Problems: All Active Problems (Updated 09/15/22 @ 08:13 by Barbara Munoz PA-C) Septic olecranon bursitis of right elbow (Acute) Cellulitis and abscess of upper extremity (Acute) Past Medical History Medical History (Updated 09/15/22 @ 08:13 by Barbara Munoz PA-C) Psoriasis Family History Family history of problems with anesthesia: No Surgical History Surgical History (Updated 09/15/22 @ 05:13 by Sandra Levine MD) No pertinent past surgical history History of Problems with Anesthesia: No Social History Social History (Updated 09/15/22 @ 05:13 by Sandra Levine MD) Alcohol intake: current Patient Tobacco Use Status: Never used Tobacco Use of substances other than those prescribed or required for medical reasons: No Currently Displaying Signs/Symptoms of Drug Intoxication Withdrawal: No Are you DNR?: No Advance Directives: No Advance Directives Information Provided: No Recently lost weight without trying: No Nutrition Risks: No Nutritional Risk service: No Current occupational status: unemployed Meds Allergies Allergy/AdvReac Type Severity Reaction Status Date / Time No Known Allergies Allergy Verified 09/14/22 18:46 Active Medications: Current Medications Acetaminophen (Acetaminophen 325 Mg Tablet) 650 mg PO Q6H PRN PRN Reason: Pain, Mild (Pain Scale 1-3) Last Admin: 09/18/22 15:48 Dose: 650 mg Docusate Sodium (Docusate Sodium 100 Mg Capsule) 100 mg PO DAILY PRN PRN Reason: Constipation Last Admin: 09/17/22 11:47 Dose: 100 mg Hydromorphone HCl (Hydromorphone Hcl 0.5 Mg/0.5 Ml Syringe) 0.5 mg IVPUSH Q5M PRN; Protocol PRN Reason: Pain, Severe (Pain Scale 7-10) Last Admin: 09/17/22 14:30 Dose: 0.5 mg Hydromorphone HCl (Hydromorphone Hcl 0.5 Mg/0.5 Ml Syringe) 0.5 mg IVPUSH Q3H PRN; Protocol PRN Reason: Pain, Severe (Pain Scale 7-10) Ceftriaxone Sodium 1 gm/ (Sodium Chloride) 50 mls @ 100 mls/hr IV Q24H [facility] Last Infusion: 09/18/22 22:25 Dose: Infused Vancomycin HCl 1,500 mg/ (Sodium Chloride) 500 mls @ 333.333 mls/hr IV Q8H [facility] Last Infusion: 09/19/22 10:39 Dose: Infused Ibuprofen (Ibuprofen 600 Mg Tablet) 600 mg PO Q8H PRN PRN Reason: Pain, Severe (Pain Scale 7-10) Last Admin: 09/18/22 05:15 Dose: 600 mg Melatonin (Melatonin 3 Mg Tablet) 6 mg PO BEDTIME PRN PRN Reason: Insomnia Last Admin: 09/19/22 01:24 Dose: 6 mg Ondansetron HCl (Ondansetron Hcl 4 Mg/2 Ml Vial) 4 mg IVPUSH Q8H PRN PRN Reason: Nausea and Vomiting Last Admin: 09/17/22 09:18 Dose: 4 mg Ondansetron HCl (Ondansetron Hcl 4 Mg/2 Ml Vial) 4 mg IVPUSH ONCE PRN PRN Reason: Nausea and Vomiting Oxycodone HCl (Oxycodone Hcl Immed Release 5 Mg Tablet) 5 mg PO Q4H PRN PRN Reason: Pain, Moderate(Pain Scale 4-6) Last Admin: 09/18/22 02:11 Dose: 5 mg Oxycodone HCl (Oxycodone Hcl Immed Release 5 Mg Tablet) 10 mg PO Q4H PRN PRN Reason: Pain, Moderate(Pain Scale 4-6) Last Admin: 09/19/22 08:24 Dose: 10 mg Pharmacy Consult (Consult Rx Perform Med Rec) 1 each MISCELLANE ONCE PRN PRN Reason: Consult order Pharmacy Consult (Consult Rx Vancomycin Dosing) 1 each MISCELLANE DAILY PRN PRN Reason: Consult order Sodium Chloride (0.9 % Sodium Chloride Flush 3 Ml Syringe) 3 ml IVFLUSH QSHIFT [facility] Last Admin: 09/19/22 09:05 Dose: 3 ml Home Medications Medication Instructions Recorded Confirmed Last Taken Type ibuprofen 800 mg tablet 800 mg PO TID PRN Pain 09/15/22 09/15/22 Unknown History sulfamethoxazole 800 1 tab PO BID 09/15/22 09/15/22 Unknown History mg-trimethoprim 160 mg tablet (Bactrim DS) Exam Exam Date and Time: September 19, 2022 1224 Height,Weight and Vital Signs: Height 5 ft 9 in Weight 79.379 kg Last Vital Signs Temp 98.7 F 09/19/22 12:00 Pulse 76 09/19/22 12:00 Resp 18 09/19/22 12:00 BP 131/78 09/19/22 12:00 Pulse Ox 96 09/19/22 12:00 O2 Del Method Room Air 09/19/22 12:00 O2 Flow Rate 2.5 09/17/22 16:23 Pertinent Lab Results Pertinent Lab Results: Laboratory Tests 09/14/22 09/14/22 09/14/22 19:05 19:05 19:05 WBC 17.4 H RBC 5.10 Hgb 15.2 Hct 42.9 MCV 84.1 MCH 29.8 MCHC 35.4 RDW 11.4 Plt Count 285 MPV 8.3 L Immature Gran % (Auto) 0.3 Neut % (Auto) 74.8 H Lymph % (Auto) 14.2 L Edgar % (Auto) 10.0 Eos % (Auto) 0.5 Baso % (Auto) 0.2 Lymph # (Auto) 2.5 Edgar # (Auto) 1.8 H Eos # (Auto) 0.1 Baso # (Auto) 0.0 Abs Immat Gran (auto) 0.06 H Absolute Neuts (auto) 13.0 H Absolute Nucleated RBC 0.000 Nucleated RBC % (auto) 0.0 Smear Tech's Comments VERIFIED ESR 57 H PT INR APTT Sodium 135 Potassium 3.8 Chloride 103 Carbon Dioxide 21 L Anion Gap 15 BUN 14 Creatinine 0.92 Estim Creat Clear Calc 109.9 Estimated GFR > 60 Random Glucose 168 H Lactic Acid Calcium 9.3 Magnesium 2.1 Total Bilirubin 1.1 H Direct Bilirubin 0.4 AST 26 ALT 35 Alkaline Phosphatase 100 C-Reactive Protein 16.49 H Total Protein 7.8 Albumin 4.4 Vancomycin Trough Random Vancomycin COVID-19 (REINIER) COVID-19 Clin Com 09/14/22 09/15/22 09/15/22 19:05 01:41 01:41 WBC RBC Hgb Hct MCV MCH MCHC RDW Plt Count MPV Immature Gran % (Auto) Neut % (Auto) Lymph % (Auto) Edgar % (Auto) Eos % (Auto) Baso % (Auto) Lymph # (Auto) Edgar # (Auto) Eos # (Auto) Baso # (Auto) Abs Immat Gran (auto) Absolute Neuts (auto) Absolute Nucleated RBC Nucleated RBC % (auto) Smear Tech's Comments ESR PT 11.9 INR 1.0 APTT 27.5 Sodium Potassium Chloride Carbon Dioxide Anion Gap BUN Creatinine Estim Creat Clear Calc Estimated GFR Random Glucose Lactic Acid 0.9 Calcium Magnesium Total Bilirubin Direct Bilirubin AST ALT Alkaline Phosphatase C-Reactive Protein Total Protein Albumin Vancomycin Trough Random Vancomycin COVID-19 ([facility]IER) Negative COVID-19 [employer] Com See Note 09/15/22 09/15/22 09/16/22 06:00 06:00 05:19 WBC 15.2 H RBC 4.59 L Hgb 13.6 L Hct 39.1 L MCV 85.2 MCH 29.6 MCHC 34.8 RDW 11.5 Plt Count 241 MPV 8.2 L Immature Gran % (Auto) 0.6 H Neut % (Auto) 79.8 H Lymph % (Auto) 8.1 L Edgar % (Auto) 11.0 Eos % (Auto) 0.3 Baso % (Auto) 0.2 Lymph # (Auto) 1.2 Edgar # (Auto) 1.7 H Eos # (Auto) 0.0 Baso # (Auto) 0.0 Abs Immat Gran (auto) 0.09 H Absolute Neuts (auto) 12.2 H Absolute Nucleated RBC 0.000 Nucleated RBC % (auto) 0.0 Smear Tech's Comments VERIFIED ESR PT INR APTT Sodium 134 L Potassium 4.3 Chloride 106 Carbon Dioxide 22 Anion Gap 10 L BUN 10 Creatinine 0.82 0.78 Estim Creat Clear Calc 123.3 129.6 Estimated GFR > 60 > 60 Random Glucose 102 Lactic Acid Calcium 8.3 L D Magnesium Total Bilirubin Direct Bilirubin AST ALT Alkaline Phosphatase C-Reactive Protein Total Protein Albumin Vancomycin Trough Random Vancomycin COVID-19 ([facility]IER) COVID-19 [employer] 09/16/22 09/17/22 09/17/22 13:57 05:31 15:56 WBC RBC Hgb Hct MCV MCH MCHC RDW Plt Count MPV Immature Gran % (Auto) Neut % (Auto) Lymph % (Auto) Edgar % (Auto) Eos % (Auto) Baso % (Auto) Lymph # (Auto) Edgar # (Auto) Eos # (Auto) Baso # (Auto) Abs Immat Gran (auto) Absolute Neuts (auto) Absolute Nucleated RBC Nucleated RBC % (auto) Smear Tech's Comments ESR PT INR APTT Sodium Potassium Chloride Carbon Dioxide Anion Gap BUN Creatinine 0.73 Estim Creat Clear Calc 138.5 Estimated GFR > 60 Random Glucose Lactic Acid Calcium Magnesium Total Bilirubin Direct Bilirubin AST ALT Alkaline Phosphatase C-Reactive Protein Total Protein Albumin Vancomycin Trough 4.3 L 7.1 L Random Vancomycin COVID-19 ([facility]) [employer] 09/18/22 09/18/22 09/18/22 05:53 15:55 17:00 WBC RBC Hgb Hct MCV MCH MCHC RDW Plt Count MPV Immature Gran % (Auto) Neut % (Auto) Lymph % (Auto) Edgar % (Auto) Eos % (Auto) Baso % (Auto) Lymph # (Auto) Edgar # (Auto) Eos # (Auto) Baso # (Auto) Abs Immat Gran (auto) Absolute Neuts (auto) Absolute Nucleated RBC Nucleated RBC % (auto) Smear Tech's Comments ESR PT INR APTT Sodium Potassium Chloride Carbon Dioxide Anion Gap BUN Creatinine 0.76 Estim Creat Clear Calc 133.0 Estimated GFR > 60 Random Glucose Lactic Acid 0.7 Calcium Magnesium Total Bilirubin Direct Bilirubin AST ALT Alkaline Phosphatase C-Reactive Protein Total Protein Albumin Vancomycin Trough Random Vancomycin 12.3 L COVID-19 ([facility]) [employer] 09/19/22 05:50 WBC RBC Hgb Hct MCV MCH MCHC RDW Plt Count MPV Immature Gran % (Auto) Neut % (Auto) Lymph % (Auto) Edgar % (Auto) Eos % (Auto) Baso % (Auto) Lymph # (Auto) Edgar # (Auto) Eos # (Auto) Baso # (Auto) Abs Immat Gran (auto) Absolute Neuts (auto) Absolute Nucleated RBC Nucleated RBC % (auto) Smear Tech's Comments ESR PT INR APTT Sodium Potassium Chloride Carbon Dioxide Anion Gap BUN Creatinine 0.73 Estim Creat Clear Calc 138.5 Estimated GFR > 60 Random Glucose Lactic Acid Calcium Magnesium Total Bilirubin Direct Bilirubin AST ALT Alkaline Phosphatase C-Reactive Protein Total Protein Albumin Vancomycin Trough Random Vancomycin COVID-19 ([facility]) [employer] Airway Mallampati Class: II TM Dist: >3cm Neck ROM: Full Loose/Missing/Broken Teeth: No Heart: RRR Lungs: cta Assessment and Plan Assessment Anesthesia Assessment: Anesthesia Plan Discussed and Chart Reviewed Final Anesthetic Review Family History of Problems with Anesthesia: No History of Problems with Anesthesia: No NPO: Yes ASA Class: II Final Preanesthetic Review: No Changes in Pt Med Stat, Meds/Allgs Chart Reviewed, Consent Obtained/Reviewed and Anes Risks/Benef Reviewed Patient Risk: Intermediate Procedure Risk: Low Anesthetic Plan Anesthetic Plan: GA Disposition: Standard PACU
--- NOTE | 2022-09-19 15:15 | P.OP_ITS ---
Operative Note Operative Note Date of Service: 09/19/22 Narrative: Date of Service: 09/19/22 Pre-op diagnosis: Right arm infection Post-op diagnosis: same Procedure: debridement and irrigation right olecranon and forearm Surgeon: Richard Callejas MD Anesthesia: GETA Was an Algebra Teacher used for this Procedure?: Yes Algebra Teacher: Barbara Munoz Estimated blood loss (mL): 100 IV fluids (mL): 1,000 Pathology: other Condition: stable Disposition: PACU Indications: this is a 37-year-old gentleman who presented 4 days ago with septicolecranon bursitis. The wound was opened up in the emergency room and he was placed on antibiotics and was doing well until hospital day 2 when he starte d to worsen and was taken back to the operating room. At that time there was relatively small but significant loss of skin distal to the olecranon. The wound was debrided and a wound VAC was placed. Upon examination today he had worsening pain with erythema And was taken back to the operating room to undergo repeat debridement. Procedure in detail: THe patient was brought to the operating room and placed supine on the operative table. He was prepped and draped in standard sterile fashion. I began by removing the wound VAC. there was a elliptical area of skin loss extending from the area radial to the olecranon and in a horseshoe type fashion extending to the area to the ulnar aspect of the olecranon this was approximately 2-3 cm in width. The wound VAC was removed and there was some good granulation tissue underneath it. Proximally there was 1 area of undermining of the skin with no evidence of purulence discharge and intact skin. Along the radial border of the wound there was a area of acute skin loss that was new compared to prior. There was a necrotic edge to the skin and I debrided just past the necrotic edge. The subcutaneous tissues and skin was bleeding and appeared healthy this area of necrosis unfortunately extended distally to involve an additional 5 cm approximately of tissue. I debrided all necrotic tissue down to bleeding edges. The skin overlying the ulnar nerve was intact. The tissue deep to the subcutaneous tissue was intact and appeared healthy. The fascia over the deep tendon was healthy appearing. Unfortunately the skin directly over the olecranon was not viable and was removed. I preserved as much skin as possible while removing all necrotic tissue. I then irrigated copiously with gentle pulse lavage until I was satisfied that the tissue was healthy. I measured the wound to be 15 cm in diameter by 10 mm in width extending distally from an area approximately 2 cm proximal to the tip of the olecranon. Given these findings I spoke with the medical doctor and the infectious disease team and clindamycin 900 mg was added to the patient's antibiotic regimen. This was administered intraoperatively. I asked that the general surgeon Dr. Almonte and the director of the wound care center examined the wound with me. She did so. She agreed that the tissue was viable and that further debridement did not appear to be necessary. She recommended packing with Dakin solution in a wet to dry fashion. This was done so and the wound was covered in sterile dressings and an Price wrap and the patient was placed into a sling. He was extubated brought to recovery room. There were no known complications.
[2022-09-19] MEDS: levoFLOXacin/D5W 750 MG/150 ML PIGGYBACK 100 MG IV (15:21)
--- NOTE | 2022-09-19 16:11 | P.CONGS_ITS ---
History of Present Illness Consult details Consult date: 09/19/22 Requesting physician: Richard Callejas Narrative: pt is a 37 year old male with right elbow large wound s/p surgical debridements - intraop consult called by dR Callejas pt , young and healthy without any sig med issues or immunosupression, about 2 weeks ago in [facility] [place] abrasion to elbow and then in dirty pools. came back with small wound on right elbow and saw dr Chandler causey who thought infected bursitis. pt treated with antibx and under went some surgical debridement on Tuesday. by tuesday the soft tissue and overlying skin looked worse so was taken back for further debridement. pt cont on iv antibx as per id. today on rounds - skin with worsening dusky color around it and pt taken to Or for extensive debridement now with a [id number] wound on post olecranon area, more towards lower arm. not involving the joint or ulna nerve or any other arterial or venous major vessels. area debrided has good bleeding and looks viable- most of the wound is open - there is a small area tunneling superiorly and inferiorly but then fascia seems intact. no purulent draining areas left or fluctuant residual areas. Review of Systems Review of Systems: Yes unobtainable due to endotracheal tube PMFSH Past Medical History Medical History (Updated 09/15/22 @ 08:13 by Barbara Munoz PA-C) Psoriasis Surgical History Surgical History (Updated 09/15/22 @ 05:13 by Sandra Levine MD) No pertinent past surgical history Social History Social History (Updated 09/15/22 @ 05:13 by Sandra Levine MD) Alcohol intake: current Patient Tobacco Use Status: Never used Tobacco Use of substances other than those prescribed or required for medical reasons: No Currently Displaying Signs/Symptoms of Drug Intoxication Withdrawal: No Are you DNR?: No Advance Directives: No Advance Directives Information Provided: No Recently lost weight without trying: No Nutrition Risks: No Nutritional Risk service: No Current occupational status: unemployed Meds Allergies Allergy/AdvReac Type Severity Reaction Status Date / Time No Known Allergies Allergy Verified 09/14/22 18:46 Active Medications: Current Medications Acetaminophen (Acetaminophen 325 Mg Tablet) 650 mg PO Q6H PRN PRN Reason: Pain, Mild (Pain Scale 1-3) Last Admin: 09/18/22 15:48 Dose: 650 mg Docusate Sodium (Docusate Sodium 100 Mg Capsule) 100 mg PO DAILY PRN PRN Reason: Constipation Last Admin: 09/17/22 11:47 Dose: 100 mg Fentanyl (Fentanyl Citrate/Pf 100 Mcg/2 Ml Vial) 50 mcg IVPUSH Q5M PRN; Protocol PRN Reason: Pain, Severe (Pain Scale 7-10) Hydromorphone HCl (Hydromorphone Hcl 0.5 Mg/0.5 Ml Syringe) 0.5 mg IVPUSH Q5M PRN; Protocol PRN Reason: Pain, Severe (Pain Scale 7-10) Last Admin: 09/17/22 14:30 Dose: 0.5 mg Hydromorphone HCl (Hydromorphone Hcl 0.5 Mg/0.5 Ml Syringe) 0.5 mg IVPUSH Q3H PRN; Protocol PRN Reason: Pain, Severe (Pain Scale 7-10) Hydromorphone HCl (Hydromorphone Hcl 0.5 Mg/0.5 Ml Syringe) 0.5 mg IVPUSH Q5M PRN; Protocol PRN Reason: Pain, Severe (Pain Scale 7-10) Ceftriaxone Sodium 1 gm/ (Sodium Chloride) 50 mls @ 100 mls/hr IV Q24H [facility] Last Infusion: 09/18/22 22:25 Dose: Infused Vancomycin HCl 1,500 mg/ (Sodium Chloride) 500 mls @ 333.333 mls/hr IV Q8H [facility] Last Infusion: 09/19/22 10:39 Dose: Infused Promethazine HCl 12.5 mg/ (Sodium Chloride) 50.5 mls @ 202 mls/hr IV ONCE PRN PRN Reason: Nausea and Vomiting Fluconazole (Diflucan) 200 mg in 100 mls @ 100 mls/hr IV Q24H [facility] Ibuprofen (Ibuprofen 600 Mg Tablet) 600 mg PO Q8H PRN PRN Reason: Pain, Severe (Pain Scale 7-10) Last Admin: 09/18/22 05:15 Dose: 600 mg Melatonin (Melatonin 3 Mg Tablet) 6 mg PO BEDTIME PRN PRN Reason: Insomnia Last Admin: 09/19/22 01:24 Dose: 6 mg Ondansetron HCl (Ondansetron Hcl 4 Mg/2 Ml Vial) 4 mg IVPUSH Q8H PRN PRN Reason: Nausea and Vomiting Last Admin: 09/17/22 09:18 Dose: 4 mg Ondansetron HCl (Ondansetron Hcl 4 Mg/2 Ml Vial) 4 mg IVPUSH ONCE PRN PRN Reason: Nausea and Vomiting Ondansetron HCl (Ondansetron Hcl 4 Mg/2 Ml Vial) 4 mg IVPUSH ONCE PRN PRN Reason: Nausea and Vomiting Oxycodone HCl (Oxycodone Hcl Immed Release 5 Mg Tablet) 5 mg PO Q4H PRN PRN Reason: Pain, Moderate(Pain Scale 4-6) Last Admin: 09/18/22 02:11 Dose: 5 mg Oxycodone HCl (Oxycodone Hcl Immed Release 5 Mg Tablet) 10 mg PO Q4H PRN PRN Reason: Pain, Moderate(Pain Scale 4-6) Last Admin: 09/19/22 08:24 Dose: 10 mg Pharmacy Consult (Consult Rx Perform Med Rec) 1 each MISCELLANE ONCE PRN PRN Reason: Consult order Pharmacy Consult (Consult Rx Vancomycin Dosing) 1 each MISCELLANE DAILY PRN PRN Reason: Consult order Sodium Chloride (0.9 % Sodium Chloride Flush 3 Ml Syringe) 3 ml IVFLUSH [facility] Last Admin: 09/19/22 09:05 Dose: 3 ml Sodium Hypochlorite (Sodium Hypochlorite 0.25% 473 Ml Solution) 1 appl TOPICAL DAILY [facility] Physical Exam Vital Signs: Vital Signs: Last Vital Signs Temp 99.9 F 09/19/22 14:58 Pulse 94 09/19/22 15:43 Resp 15 09/19/22 15:43 BP 126/76 09/19/22 15:43 Pulse Ox 95 09/19/22 15:43 O2 Del Method Room Air 09/19/22 15:43 O2 Flow Rate 2 09/19/22 15:28 BMI result Body Mass Index 25.8 Skin: Other: large defect jof soft tissue to fascia and bone on right upper extrem around olecranon process 10x15 cm after debridement bleeding tissue deep and at skin edges Results Labs 09/15/22 06:00 09/19/22 05:50 Labs: Abnormal lab results 09/18/22 Range/Units 15:55 Random Vancomycin 12.3 L (15-20) mcg/mL BMP 09/19/22 05:50 Creatinine 0.73 All other labs normal. Assessment and Plan (1) Septic olecranon bursitis of right elbow: Status: Acute Plan This ihas now progressed significiantly despite 3 surgical interventions with debridement and iv antibx covering wide range of organisms. introp cx done. pt is healthy young male - ? necrotizing skin and soft tissue infection id recommending change in antibx - levaquin and clindamycin at this point no further surgical intervention - wound packed with dakins sout ion only other thing would be possible HBO - we have no inpatient HBO This is critical limb at risk - discussed with Dr Alexis Mujica at [facility] in [place] who is accepting the pt. keep o2 sats up with supplemental oxygen adalberto warmer to keep core temp up extensive discussion between med and ortho and surgical team had for this pt who needs tertiary level care for limb salvage also extensively discussed with pts . Time Spent With Patient Time: Total time managing care of this patient today ____ minutes. Procedures Date of Service Date of Service: 09/19/22
--- NOTE | 2022-09-19 16:11 | PM.DS ---
DS: Providers Provider Date of Service: 09/19/22 Date of admission: 09/17/22 10:16 Date of discharge: 09/19/22 Primary care physician: Eduar Solano MD Consults: 09/15/22 05:16 Consult to Orthopedics Routine Consulting Provider[place] [facility] [place] [facility] Reason for consultation: elbow cellulitis, abscess Has provider been notified: Yes DS: Diagnosis Discharge Diagnosis (1) Septic olecranon bursitis of right elbow: Status: Acute DS: Summary Hospital Course Hospital Course: 37-year-old male with past medical history of psoriasis who presents to the hospital with complaints of difficulty ambulating his right elbow, swelling, and redness in the same region.? Patient reports that about 4 weeks ago he fell on his elbow while playing with her son, he then injured the same elbow banging it in various places x2 last episode 2 weeks ago, he started having trouble with movement of his elbow, and few days ago started developing swelling, redness, and worsening pain characterized as intermittent, 3 to 5/10, elbow to the tip of his fingers, relieved with ibuprofen.? Movement makes the pain worse.? Patient reports chills with no fever.? He was? seen at urgent care on Tuesday, prescribed Bactrim which has not helped, he was seen by his PCP today who sent him to the ED.?On arrival to the ED patient hemodynamically stable no significant abnormal vitals Labs are significant for WBC count of 17.4, ESR 57, CRP of 16, Elbow x-ray shows nonspecific soft tissue thickening, with no acute fracture or malalignment.I&D was performed in the ED and fluid was removed from a small abscess and sent for cultures [facility] Patient admitted to [facility] on vancomycin/Zosyn. On 09/17 patient was taken to the operating room by the orthopedic surgeon where the elbow was irrigated and debrided. He placed a vacuum assisted dressing on and patient tolerated the procedure well. Upon examination of elbow today by Orthopedics it was felt that further debridement be undertaken in the OR. As per OR notes wound had worsened in both the proximal and distal direction with the elbow being the center point. Please see their notes for details. Infectious Disease was consulted and clindamycin 900 mg was given stat along with Levaquin 500 mg stat. Decision was made that this infection would be better managed at a tertiary care center. Call placed to [facility]. Spoke with Dr. Geno Mujica (surgery) who accepted patient. Patient will be transferred to [facility] ER at her request. All parties made aware. updated. He has remained hemodynamically stable and acceptable for transfer at this time Time Spent with Patient Time attestation: Total time managing care of this patient today ____ minutes. Discharge coordination time: Greater than 30 minutes Quality: Safe Use of Opioids Does Pt have an Active Cancer Diagnosis on the Problem List?: No Quality: Stroke Does the patient have a stroke diagnosis?: No Physical Exam Vital Signs: Vital Signs: Last Vital Signs Temp 99.9 F 09/19/22 14:58 Pulse 94 09/19/22 15:43 Resp 15 09/19/22 15:43 BP 126/76 09/19/22 15:43 Pulse Ox 95 09/19/22 15:43 O2 Del Method Room Air 09/19/22 15:43 O2 Flow Rate 2 09/19/22 15:28 BMI result Body Mass Index 25.8 Const: Other: No acute distress Resp: Other: Clear to auscultation bilaterally no rales rhonchi wheezes Cardio: Other: No S4; positive S1-S2; no S3 murmurs rubs or gallops GI: Other: Soft nontender nondistended normoactive bowel sounds Extrem: Other: Price wrap to right elbow clean dry and intact DS: Data Data Completed and Pending Pending studies at discharge: Pending at discharge 09/19/22 13:51 Surgical [PTH] Routine Labs on day of discharge: Laboratory Results - last 24 hr 09/18/22 09/18/22 09/19/22 15:55 17:00 05:50 Creatinine 0.73 Estim Creat Clear Calc 138.5 Estimated GFR > 60 Lactic Acid 0.7 Random Vancomycin 12.3 L Preliminary micro results at discharge 09/15/22 21:19 Blood Culture - Preliminary Blood - Venous No growth after 48 hours. 09/15/22 21:19 Blood Culture - Preliminary Blood - Venous No growth after 48 hours. 09/14/22 20:01 Blood Culture - Preliminary Blood - Venous No growth after 48 hours. Discharge Plan Discharge Anticipated Discharge Date/Time: 09/19/22 16:06 [facility] Diagnosis: Septic olecranon bursitis of right elbow with surrounding cellulitic Referrals: Eduar Solano MD [Primary Care Provider] - 1 Week Discharge Medications: New fluconazole in NaCl (iso-osm) 200 mg/100 mL Piggyback 200 mg IV Q24H Qty: 1000 0RF ceftriaxone 1 gram Recon Soln 1 g IV Q24H Qty: 5 0RF hydromorphone 0.5 mg/0.5 mL Syringe 0.5 mg IVPUSH Q3H PRN (Reason: Pain, Severe (Pain Scale 7-10)) Qty: 5 0RF Protocol: Hold for RR < HOLD and contact provider for RR < (bpm): 12 Rx Instructions: Partial Fill upon patient request. oxycodone 5 mg Tablet 10 mg PO Q4H PRN (Reason: Pain, Moderate(Pain Scale 4-6)) Qty: 30 0RF Rx Instructions: Partial Fill upon patient request. ondansetron HCl (PF) 4 mg/2 mL Solution 4 mg IVPUSH Q8H PRN (Reason: Nausea And Vomiting) Qty: 10 0RF Discontinued ibuprofen 800 mg Tablet 800 mg PO TID PRN (Reason: Pain) sulfamethoxazole-trimethoprim [Bactrim DS] 800-160 mg Tablet 1 tab PO BID Rx Instructions: START DATE 09/12/22 FOR A 10 DAY SUPPLY Discharge Orders: Discharge Order (Routine); Ordered 09/19/22 Ordered By: Jung Smith Diet: Advance to usual diet Activity on Discharge: As tolerated Stand Alone Forms: Patient Portal Discharge page Care Plan Goals: Thank you transfer to [facility] ER; further care as per receiving team Health Concerns: Transfer Plan of Treatment: Transfer Assessment: See discharge summary
--- NOTE | 2022-09-19 16:17 | PC.NURSE ---
pt to be discharged and sent to [facility] via ambulance report given to [employer] Operator Aly
== END 2022-09-19 16:54 | disposition short-term general hospital (02) | DRG 317 ==
LOC: HO.ED 09-15 00:42 → HO.EDOVER 09-15 01:09 → HO.S3 09-15 14:32
PROVIDERS: Internal Medicine; Orthopaedic Surgery; Physician Assistant; Student in an Organized Health Care Education/Training Program; Admitting Provider Internal Medicine; Emergency Provider Emergency Medicine; PCP Internal Medicine; Visit Provider Hospitalist
PROC: 0JDG0ZZ Extraction of Right Lower Arm Subcutaneous Tissue and Fascia, Open Approach (ICD-10-PCS; principal; 2022-09-17 13:00)
DX: M70.21 Olecranon bursitis, right elbow (principal); I96 Gangrene, not elsewhere classified; L03.113 Cellulitis of right upper limb; L02.413 Cutaneous abscess of right upper limb; Z20.822 Contact with and (suspected) exposure to COVID-19
CPT/HCPCS: 36415; 73080; 73201; 80048; 80076; 80202; 82565; 83605; 83735; 85025; 85610; 85652; 85730; 86140; 87040; 87070; 87073; 87147; 87205; 87635; 88305; 99221; 99285; J0131; J0690; J0696; J1100; J1170; J1956; J2250; J2405; J2550; J2795; J3010; J3370; J3371; Q9967